=== PATIENT | male | born 1950 | race Caucasian/White ===

== ENCOUNTER 2020-02-27 06:09 | Outpatient (REF) | payer MEDICARE, MEDICAID, SELFPAY ==
[2020-02-27 07:14] LABS: Creatinine Urine 191.65 mg/dL; Microalbum/Creatinine Ratio Ur 5.2 ug/mg cr
[2020-02-27 07:16] LABS: Alanine Aminotransferase 23 U/L (0-40); Alkaline Phosphatase 71 U/L (39-117); Anion Gap 12 (12-20); Aspartate Amino Transferase 21 U/L (5-37); Bilirubin Total 0.6 mg/dL (0.0-1.0); Blood Urea Nitrogen 21 mg/dL (9-16); Calcium 8.2 mg/dL (8.4-10.2); Carbon Dioxide 29 mmol/L (22-29); Chloride 104 mmol/L (96-108); Cholesterol 168 mg/dL; Estimated Glomerular Filt Rate > 60; Glucose Fasting 123 mg/dL (60-99); HDL Cholesterol 46 mg/dL; LDL Cholesterol Calculated 96 mg/dl; Potassium 4.5 mmol/l (3.3-5.1); Sodium 140 mmol/L (135-145); Total Protein 6.5 g/dL (6.5-8.0); Triglycerides 134 mg/dL
[2020-02-27 07:19] LABS: Estimated Average Glucose 140 mg/dL; Hemoglobin A1c % 6.5 %
[2020-02-27 07:35] LABS: TSH reflex Free T4 1.38 mIU/mL (0.32-4.0)
== END 2020-02-27 06:10 | disposition home or self-care (01) ==
LOC: HO.LAB 06:09
PROVIDERS: Visit Provider Family Medicine
DX: E11.9 Type 2 diabetes mellitus without complications (principal); I10 Essential (primary) hypertension; Z00.00 Encounter for general adult medical examination without abnormal findings
CPT/HCPCS: 80053; 80061; 82043; 83036; 84443

== ENCOUNTER 2021-09-07 10:11 | Outpatient (REF) | payer MEDICARE, MEDICAID, SELFPAY ==
--- NOTE | ~2021-09-07 | XR_ITS ---
EXAMINATION: XR CHEST CLINICAL INFORMATION: Wheezing COMPARISON: None TECHNIQUE: 2 views of the chest were obtained. FINDINGS: Normal symmetric lung volumes. No parenchymal consolidation. No pleural effusion. No pneumothorax. Cardiomediastinal silhouette and pulmonary vascularity are within normal limits. Aorta is atherosclerotic. No acute osseous abnormalities. XR/XR chest 2V IMPRESSION: No acute findings
== END 2021-09-07 10:12 | disposition home or self-care (01) ==
LOC: HO.XRAY 10:11
PROVIDERS: PCP Family Medicine; Visit Provider Family Medicine
DX: R06.2 Wheezing (principal)
CPT/HCPCS: 71046

== ENCOUNTER 2021-09-08 05:58 | Outpatient (REF) | payer MEDICARE, MEDICAID, SELFPAY ==
[2021-09-08 08:09] LABS: Appearance Urine CLEAR; Color Urine YELLOW; Glucose Urine UA NEG (NEG); Leukocyte Esterase Urine NEG (NEG); Nitrite Urine NEG (NEG); PH 6.5 (5.0-8.0); Urine Blood NEG (NEG); Urine Ketones NEG (NEG); Urine Protein NEG (NEG-TRACE)
[2021-09-08 08:21] LABS: Alanine Aminotransferase 21 U/L (0-40); Albumin Level 4.2 g/dL (3.5-5.0); Alkaline Phosphatase 62 U/L (39-117); Anion Gap 15 (12-20); Aspartate Amino Transferase 19 U/L (5-37); Bilirubin Total 0.5 mg/dL (0.0-1.0); Blood Urea Nitrogen 20 mg/dL (9-16); Calcium 9.4 mg/dL (8.4-10.2); Carbon Dioxide 28 mmol/L (22-29); Chloride 100 mmol/L (96-108); Cholesterol 160 mg/dL; Estimated Glomerular Filt Rate > 60; Glucose Fasting 112 mg/dL (60-99); HDL Cholesterol 48 mg/dL; LDL Cholesterol Calculated 92 mg/dl; Potassium 4.3 mmol/L (3.3-5.1); Sodium 139 mmol/L (135-145); Total Protein 6.9 g/dL (6.5-8.0); Triglycerides 102 mg/dL
[2021-09-08 08:22] LABS: Creatinine Urine 54.46 mg/dL; Microalbumin Urine < 5.0 mg/L
[2021-09-08 08:51] LABS: Prostate Specific Antigen Scr 2.07 ng/mL (<0.05-4.0); TSH reflex Free T4 1.42 uIU/mL (0.32-4.0)
== END 2021-09-08 05:59 | disposition home or self-care (01) ==
LOC: HO.LAB 05:58
PROVIDERS: PCP Family Medicine; Visit Provider Family Medicine
DX: Z00.00 Encounter for general adult medical examination without abnormal findings (principal); I10 Essential (primary) hypertension; Z12.5 Encounter for screening for malignant neoplasm of prostate
CPT/HCPCS: 36415; 80053; 80061; 81003; 82043; 84153; 84443

== ENCOUNTER 2022-01-02 16:52 | Emergency (ER) | payer MEDICARE, MEDICAID, SELFPAY ==
--- NOTE | ~2022-01-02 | CT_ITS ---
EXAMINATION: CT head/brain wo IV con CLINICAL INFORMATION: Reason for Exam acute dizziness COMPARISON: None. TECHNIQUE: Contiguous axial imaging was performed from the skull base to vertex without intravenous contrast. Sagittal and coronal reformatted images were obtained. This CT examination was performed using dose optimization techniques as appropriate, variously including the following: * Automated exposure control * Adjustment of mA and/or kV according to patient size (this includes techniques or standardized protocols for targeted exams where dose is matched to indication/reason for exam; i.e. extremities or head) Use of iterative reconstruction technique DLP: 684 mGy-cm FINDINGS: No acute osseous or soft tissue abnormality. The mastoid air cells and visualized portions of the paranasal sinuses are well aerated. There is no evidence of acute intracranial hemorrhage or territorial infarction. No abnormal mass effect or midline shift is seen. Gee to white matter differentiation is well preserved. No extra-axial fluid collections are identified. No hydrocephalus. Proportional prominence of the ventricles and sulcal spaces is consistent with mild volume loss. There is no abnormal attenuation within the brain parenchyma. CT/CT head/brain wo IV con IMPRESSION: No acute intracranial abnormality including hemorrhage, mass effect, hydrocephalus, or acute territorial edematous infarction.
[2022-01-02 17:01] VITALS: BP 137/76; PULSE 91; RESP 18; TEMP 36.7; O2SAT 96; BMI 32.8
[2022-01-02 17:16] LABS: MANUAL DIFF FLAG NO
[2022-01-02 17:21] LABS: Basophils Absolute Auto 0.1 X10*3/uL (0.0-0.2); Basophils Percent Auto 0.5 % (0-2); Eosinophils Absolute Auto 0.1 X10*3/uL (0.0-0.4); Eosinophils Percent Auto 0.7 % (0-4); Hemoglobin 14.5 g/dl (14.0-18.0); Imm Gran Abs Auto 0.07 X10*3/uL (0.00-0.03); Imm Gran Pct Auto 0.7 % (0.0-0.4); Lymphocytes Percent Auto 9.1 % (20-40); Mean Corpuscular HGB Conc 33.7 g/dl (31.0-36.0); Mean Corpuscular Hemoglobin 29.2 pg (27.0-33.0); Mean Corpuscular Volume 86.5 fL (80.0-98.0); Mean Platelet Volume 9.1 fL (9.4-12.4); Monocytes Absolute Auto 0.5 X10*3/uL (0.1-1.2); Monocytes Percent Auto 4.5 % (2-11); Neutrophils Percent Auto 84.5 % (45-73); Platelet Count 181 X10*3/uL (160-400); Red Blood Count 4.97 X10*6/uL (4.60-5.80); Red Cell Distribution Width 13.8 % (11.0-16.0); White Blood Count 10.7 X10*3/uL (4.8-10.8)
[2022-01-02 17:25] VITALS: BP 147/74; PULSE 81; RESP 22; TEMP 36.6; O2SAT 96
[2022-01-02 17:26] LABS: Prothrombin Time 11.1 SEC (10.0-13.1)
[2022-01-02 17:36] LABS: Alanine Aminotransferase 22 U/L (0-40); Albumin Level 4.2 g/dL (3.5-5.0); Alkaline Phosphatase 61 U/L (39-117); Anion Gap 19 (12-20); Aspartate Amino Transferase 21 U/L (5-37); Bilirubin Total 0.3 mg/dL (0.0-1.0); Blood Urea Nitrogen 28 mg/dL (9-16); Carbon Dioxide 25 mmol/L (22-29); Chloride 100 mmol/L (96-108); Creatinine Clr Calc Pharmacy 70.3; Estimated Glomerular Filt Rate > 60; Glucose Random 135 mg/dL (60-115); Sodium 139 mmol/L (135-145)
--- NOTE | 2022-01-02 17:47 | ED.DIZZY ---
HPI - Dizziness General Chief Complaint: Dizziness Stated Complaint: Dizzy Time Seen by Provider: 01/02/22 17:47 Source: patient Mode of arrival: ambulatory Limitations: no limitations History of Present Illness HPI Narrative: Patient history of hypertension diabetes noticed sudden onset of dizziness with slight spinning movement started just prior to arrival with slight right-sided headache nausea and vomited 1 time was little off balance patient never had similar episode of dizziness in the past no fever no chills no chest pain or palpitation no focal weakness no speech problem. Patient feeling much better after arrival Related Data Home Medications Medication Instructions Recorded Confirmed aspirin 81 mg tablet,delayed 81 mg PO DAILY 04/06/20 release (Adult Low Dose Aspirin) Previous Rx's Medication Instructions Recorded simvastatin 20 mg tablet 20 mg PO BEDTIME #90 tabs 06/30/21 blood sugar diagnostic (FreeStyle #200 ea 08/17/21 Lite Strips) metformin 500 mg tablet 500 mg PO BID 90 days #180 caps 08/22/21 lisinopril 20 1 tab PO DAILY #90 tabs 10/26/21 mg-hydrochlorothiazide 25 mg tablet amlodipine 5 mg tablet 10 mg PO DAILY #60 tabs 11/24/21 glipizide 10 mg tablet, extended 10 mg PO DAILY 90 days #90 tabs 12/06/21 release 24 hr meclizine 25 mg tablet 25 mg PO TID PRN dizziness #20 tabs 01/02/22 Allergies Allergy/AdvReac Type Severity Reaction Status Date / Time No Known Allergies Allergy Verified 12/06/21 08:28 Review of Systems Review of Systems: Yes all other systems are reviewed and are negative [facility] Past Medical History Surgical History No pertinent past surgical history Social History Social History Household Members: Family Household Members Other:: sister Housing: House Alcohol intake: never Patient Tobacco Use Status: Never used Tobacco e-Cigarette/Vaping Use: Never Used Second Hand Smoke Exposure: No Advance Directives: No Advance Directives Information Provided: No service: No Current occupational status: retired Current occupational exposures/hazards: No Cognitive needs: No Hearing needs: No Vision needs: No Physical Exam Vital Signs: Vital Signs: Last Vital Signs Temp 97.9 F 01/02/22 17:25 Pulse 87 01/02/22 19:50 Resp 17 01/02/22 19:50 BP 128/63 01/02/22 19:50 Pulse Ox 96 01/02/22 19:50 O2 Del Method 01/02/22 19:50 BMI result Body Mass Index 32.8 Appearance: Alert. Oriented X3. No acute distress. Eyes: PERRLA, No Nystagmus ENT: Pharynx normal. Oral Mucosa moist Neck: Normal inspection. Neck supple. CVS: Normal heart rate and rhythm. Pulses normal. Respiratory: No respiratory distress. Equal air entry bilateral, no wheezing/rales/rhonchi Abdomen: Soft and nontender. Bowel sounds are present, no mass palpable, no CVA tenderness Skin: Skin warm and dry. Normal skin color. Normal skin turgor. Extremities: No lower extremity edema. No calf tenderness Neuro: Oriented X 3. No motor deficit. No sensory deficit.No cerebellar signs , cranial nerves II-XII intact MDM - Dizziness MDM Narrative Medical decision making narrative: Patient feeling much better after meclizine able to ambulate in the ER, CT scan head of the negative labs are stable discharge patient home on meclizine Lab Data Attestation: I reviewed the patient's lab results. Result diagrams: 01/02/22 17:07 01/02/22 17:07 Labs: Lab Results 01/02/22 01/02/22 01/02/22 Range/Units 17:07 17:07 17:07 WBC 10.7 (4.8-10.8) X10*3/uL RBC 4.97 (4.60-5.80) X10*6/uL Hgb 14.5 (14.0-18.0) g/dl Hct 43.0 (42.0-52.0) % MCV 86.5 (80.0-98.0) fL MCH 29.2 (27.0-33.0) pg MCHC 33.7 (31.0-36.0) g/dl RDW 13.8 (11.0-16.0) % Plt Count 181 (160-400) X10*3/uL MPV 9.1 L (9.4-12.4) fL Immature Gran % (Auto) 0.7 H (0.0-0.4) % Neut % (Auto) 84.5 H (45-73) % Lymph % (Auto) 9.1 L (20-40) % Chambers % (Auto) 4.5 (2-11) % Eos % (Auto) 0.7 (0-4) % Baso % (Auto) 0.5 (0-2) % Lymph # (Auto) 1.0 L (1.2-4.9) X10*3/uL Chambers # (Auto) 0.5 (0.1-1.2) X10*3/uL Eos # (Auto) 0.1 (0.0-0.4) X10*3/uL Baso # (Auto) 0.1 (0.0-0.2) X10*3/uL Abs Immat Gran (auto) 0.07 H (0.00-0.03) X10*3/uL Absolute Neuts (auto) 9.0 H (2.0-8.3) x10*3/uL Absolute Nucleated RBC 0.000 (0.0-0.012) X10*3/uL Nucleated RBC % (auto) 0.0 (0.0-0.2) /100WBC PT 11.1 (10.0-13.1) SEC INR 1.0 (0.9-1.1) Sodium 139 (135-145) mmol/L Potassium 5.0 (3.3-5.1) mmol/L Chloride 100 (96-108) mmol/L Carbon Dioxide 25 (22-29) mmol/L Anion Gap 19 (12-20) BUN 28 H (9-16) mg/dL Creatinine 0.99 (0.5-1.4) mg/dL Estim Creat Clear Calc 70.3 Estimated GFR > 60 Random Glucose 135 H (60-115) mg/dL Calcium 9.0 (8.4-10.2) mg/dL Total Bilirubin 0.3 (0.0-1.0) mg/dL AST 21 (5-37) U/L ALT 22 (0-40) U/L Alkaline Phosphatase 61 (39-117) U/L Total Protein 7.0 (6.5-8.0) g/dL Albumin 4.2 (3.5-5.0) g/dL Discharge Plan Discharge Clinical Impression: Benign paroxysmal positional vertigo Patient Disposition: Home, Self-Care Instructions: Benign Paroxysmal Positional Vertigo (ED) Additional Instructions: Care and caution as advised Take meclizine 1 tablet every 8 hours as needed for dizziness Follow with PCP if not better Prescriptions: New meclizine 25 mg tablet 25 mg PO TID PRN (Reason: dizziness) Qty: 20 0RF No Action simvastatin 20 mg tablet 20 mg PO BEDTIME Qty: 90 3RF (DME) FreeStyle Lite Strips Strip See Rx Instructions .ROUTE .MEDSUPPLY Qty: 200 4RF Rx Instructions: DX: E11.9, test blood sugar twice a day, 90 days metformin 500 mg tablet 500 mg PO BID 90 Days Qty: 180 3RF lisinopril-hydrochlorothiazide 20-25 mg tablet 1 tab PO DAILY Qty: 90 1RF amlodipine 5 mg tablet 10 mg PO DAILY Qty: 60 1RF aspirin [Adult Low Dose Aspirin] 81 mg tablet,delayed release (DR/EC) 81 mg PO DAILY glipizide 10 mg tablet extended release 24hr 10 mg PO DAILY 90 Days Qty: 90 3RF Interventions: ED Discharge Assessment Last Done: 01/02/22 19:54 Discharge Date/Time: 01/02/22 19:55
[2022-01-02 18:02] VITALS: BP 143/84; BP 145/78; PULSE 84; PULSE 91
[2022-01-02 18:03] VITALS: BP 159/79; PULSE 99
[2022-01-02 18:04] VITALS: BP 145/78; PULSE 84; RESP 18; O2SAT 96
[2022-01-02] MEDS: Meclizine HCl 25 MG TABLET 50 MG PO (18:26)
[2022-01-02 19:50] VITALS: BP 128/63; PULSE 87; RESP 17; O2SAT 96
== END 2022-01-02 19:55 | disposition home or self-care (01) ==
PROVIDERS: Emergency Provider Internal Medicine; PCP Family Medicine
DX: H81.10 Benign paroxysmal vertigo, unspecified ear (principal); I10 Essential (primary) hypertension; E11.9 Type 2 diabetes mellitus without complications; E78.00 Pure hypercholesterolemia, unspecified; Z79.82 Long term (current) use of aspirin; Z79.02 Long term (current) use of antithrombotics/antiplatelets; Z79.84 Long term (current) use of oral hypoglycemic drugs; Z79.899 Other long term (current) drug therapy
CPT/HCPCS: 36415; 70450; 80053; 85025; 85610; 99283; 99284

== ENCOUNTER 2022-07-18 08:12 | Outpatient (REF) | payer MEDICARE, MEDICAID, SELFPAY ==
[2022-07-18 11:40] LABS: MANUAL DIFF FLAG NO
[2022-07-18 11:50] LABS: Basophils Absolute Auto 0.1 X10*3/uL (0.0-0.2); Basophils Percent Auto 0.8 % (0-2); Eosinophils Absolute Auto 0.2 X10*3/uL (0.0-0.4); Eosinophils Percent Auto 2.7 % (0-4); Hematocrit 44.7 % (42.0-52.0); Hemoglobin 14.6 g/dl (14.0-18.0); Imm Gran Abs Auto 0.03 X10*3/uL (0.00-0.03); Imm Gran Pct Auto 0.5 % (0.0-0.4); Lymphocytes Absolute Auto 1.5 X10*3/uL (1.2-4.9); Lymphocytes Percent Auto 25.7 % (20-40); Mean Corpuscular HGB Conc 32.7 g/dl (31.0-36.0); Mean Corpuscular Hemoglobin 28.1 pg (27.0-33.0); Mean Corpuscular Volume 86.1 fL (80.0-98.0); Mean Platelet Volume 9.8 fL (9.4-12.4); Monocytes Absolute Auto 0.5 X10*3/uL (0.1-1.2); Neutrophils Absolute Auto 3.7 x10*3/uL (2.0-8.3); Neutrophils Percent Auto 61.3 % (45-73); Platelet Count 202 X10*3/uL (160-400); Red Blood Count 5.19 X10*6/uL (4.60-5.80); Red Cell Distribution Width 14.8 % (11.0-16.0)
[2022-07-18 11:56] LABS: Appearance Urine Clear; Color Urine Yellow; Glucose Urine UA Negative (Negative); Leukocyte Esterase Urine Negative (Negative); Nitrite Urine Negative (Negative); Urine Blood Negative (Negative); Urine Ketones Negative (Negative); Urine Protein Negative (Neg-Trace)
[2022-07-18 11:58] LABS: Estimated Average Glucose 143 mg/dL; Hemoglobin A1c % 6.6 %
[2022-07-18 12:39] LABS: Creatinine Urine 124.33 mg/dL; Microalbum/Creatinine Ratio Ur 6.4 ug/mg cr
[2022-07-18 13:20] LABS: Alanine Aminotransferase 23 U/L (0-40); Albumin Level 4.1 g/dL (3.5-5.0); Alkaline Phosphatase 57 U/L (39-117); Anion Gap 16 (12-20); Aspartate Amino Transferase 19 U/L (5-37); Bilirubin Total 0.6 mg/dL (0.0-1.0); Blood Urea Nitrogen 23 mg/dL (9-16); Calcium 9.1 mg/dL (8.4-10.2); Carbon Dioxide 26 mmol/L (22-29); Chloride 104 mmol/L (96-108); Cholesterol 166 mg/dL; Estimated Glomerular Filt Rate > 60; Glucose Fasting 107 mg/dL (60-99); HDL Cholesterol 45 mg/dL; LDL Cholesterol Calculated 93 mg/dl; Potassium 4.1 mmol/L (3.3-5.1); Sodium 142 mmol/L (135-145); Total Protein 6.6 g/dL (6.5-8.0); Triglycerides 142 mg/dL
[2022-07-18 13:33] LABS: Prostate Specific Antigen Scr 2.02 ng/mL (<0.05-4.0); TSH reflex Free T4 1.18 uIU/mL (0.32-4.0)
== END 2022-07-18 08:13 | disposition home or self-care (01) ==
LOC: HO.WFDLDS 08:12
PROVIDERS: Visit Provider Family Medicine
DX: Z00.00 Encounter for general adult medical examination without abnormal findings (principal); I10 Essential (primary) hypertension; R73.01 Impaired fasting glucose; Z12.5 Encounter for screening for malignant neoplasm of prostate
CPT/HCPCS: 36415; 80053; 80061; 81003; 82043; 83036; 84153; 84443; 85025

== ENCOUNTER 2023-01-24 08:33 | Outpatient (AMB) | payer MEDICARE, MEDICAID, SELFPAY ==
--- NOTE | 2023-01-24 08:40 | MHC.PC.OV ---
Vital Signs 01/24/23 08:41 Height 5 ft 4 in Weight 202 lb 2 oz BMI 34.7 BP 110/60 Blood Pressure Location Lt brachial Position Sitting Respiration 14 Pulse 97 Pulse Source Pulse Oximeter Temp 98.9 F Temp Source Oral Pulse Oximetry (%) 98 Oxygen Delivery Method Room Air Intake Visit Reasons: f/u hypertension and diabetes Intake Note: Patient is here to follow up regarding diabetes and hypertension. Patient reports he has not had an A1C completed in another office within the last 3 months. Patient reports he has no concerns today. Edi Analyst Required: No Accompanied by: Self / Same As Patient Allergies No Known Allergies Allergy (Verified 01/24/23 08:51) Tobacco use date assessed: 01/24/23 Fall risk assessment: No Falls in past year Last assessed Fall Risk: 01/24/23 Dental Screening Dental Screen Date: 01/24/23 Did you have a dental visit in the last 12 months?: No Did you have a dental problem in the last 6 months where you did not have access to dental care?: No Was dental information given to patient?: Patient declined HPI f/u hypertension and diabetes HPI Details 72 y/o male presents to f/u hypertension and diabetes. Blood pressure today 110/60. He is on lisinopril-HCTZ 20-25 mg daily and amlodipine 10mg. Last A1c 10/25/22 6.8%. A1c today 01/24/23 6.9%. He is on glipizide 10mg and metformin 500mg b.i.d. HPI Comments History of Present Illness Details Documentation assistance for Mauro Matamoros MD, was provided by Jose Livingston,?[employer] on 01/22/2023 9:09 AM EST. Gordon, Dr. Matamoros, have read, observed, and verified documentation.? [facility] Surgical History No pertinent past surgical history Social History Household Members: Family Household Members Other:: sister Housing: House Alcohol intake: never Patient Tobacco Use Status: Never used Tobacco e-Cigarette/Vaping Use: Never Used Second Hand Smoke Exposure: No service: No Current occupational status: retired Current occupational exposures/hazards: No Cognitive needs: No Hearing needs: No Vision needs: No Questionnaire Thrive Questionnaire Date Thrive assessed: 06/07/22 SAMANTHA-7 AMB Questionnaire SAMANTHA-7 Date SAMANTHA - 7 assessed: 09/30/21 Source: Developed by Drs. Rashad Dominique, Dorota Padilla, Fabian Dunham and colleagues, with an educational joslyn from [employer]. Physical exam (Primary Care) Vital Signs: Last Vital Signs Temp 98.9 F 01/24/23 08:41 Pulse 97 01/24/23 08:41 Resp 14 01/24/23 08:41 BP 110/60 01/24/23 08:41 Pulse Ox 98 01/24/23 08:41 Oxygen Delivery Method Room Air 01/24/23 08:41 BMI result Body Mass Index 34.7 Tobacco/Smoking Status: Tobacco use Status Tobacco use date assessed 01/24/23 01/24/23 08:51 Patient Tobacco Use Status Never used Tobacco 01/24/23 08:40 e-Cigarette/Vaping Use Never Used 01/24/23 08:40 Thrive Assessment: Date of Thrive Assessment Date Thrive assessed 06/07/22 01/24/23 08:40 Results AMB Hemoglobin A1c AMB Hemoglobin A1c 6.9 % Last Edit by Leena Stanford on 01/24/23 08:56 Results Reviewed Results Reviewed: Laboratory Last Values Hgb A1c (Clinic) 6.9 % (4.0-6.0) H 01/24/23 08:56 Assessment and Plan Assessment & Plan (1) Essential hypertension: Code(s): I10 - Essential (primary) hypertension Plan: Blood pressure is well controlled. Goal is less than 140/90 Continue current medication regimen (2) Diabetes type 2, controlled: Code(s): E11.9 - Type 2 diabetes mellitus without complications Plan: A1c today 6.9% which is still controlled. Goal is less than 7.0% No medication changes made today. Continue current regimen Encouraged diet lower in sugars and starches Encouraged exercise Patient was refer to ophthalmology last fall and also this past May. Has not been scheduled yet. I have asked the front office to help him get schedule today. (3) Immunization counseling: Code(s): Z71.85 - Encounter for immunization safety counseling Plan: Due for influenza vaccine and we will give this to him today Coding Level of Care Code Est Pt Level 4 (38313) Diagnoses Essential hypertension I10 Diabetes type 2, controlled E11.9 Immunization counseling Z71.85
[2023-01-24 08:41] VITALS: BP 110/60; PULSE 97; RESP 14; TEMP 37.2; O2SAT 98; BMI 34.7
== END 2023-01-24 09:35 | disposition home or self-care (01) ==
PROVIDERS: PCP Family Medicine; Visit Provider Family Medicine
DX: Z23 Encounter for immunization (principal)
CPT/HCPCS: 90471; 90686; 99214

== ENCOUNTER 2023-03-19 15:30 | Outpatient (AMB) | payer MEDICARE, MEDICAID, SELFPAY ==
[2023-03-19 16:00] VITALS: BP 120/60; PULSE 113; TEMP 36.3; O2SAT 97; BMI 35.0
--- NOTE | 2023-03-19 16:00 | AM.OFFWIN_ITS ---
Intake Vital Signs 03/19/23 16:00 Height 5 ft 4 in Weight 204 lb BMI 35.0 BP 120/60 Blood Pressure Location Rt brachial Position Sitting Pulse 113 H Pulse Source Pulse Oximeter Temp 97.4 F Temp Source Oral Pulse Oximetry (%) 97 Oxygen Delivery Method Room Air Intake Visit Reasons: EP Fell last week/ Intake Note: Patient is here today from a fall last wk, pt tripped over his trailer and is having pain in his lower back Patient Tobacco Use Status: Never used Tobacco Allergies No Known Allergies Allergy (Verified 03/19/23 16:00) Medication List - Last Reconciled 03/19/23 by Marcelo Frazier MD amlodipine 10 mg (2 x 5 mg) PO DAILY 90 days aspirin (Adult Low Dose Aspirin) 81 mg PO DAILY blood sugar diagnostic (FreeStyle Lite Strips) DX: E11.9, test blood sugar twice a day, 90 days glipizide ER 10 mg PO DAILY 90 days lisinopril-hydrochlorothiazide 20-25 mg 1 tab PO DAILY metformin 500 mg PO BID 90 days simvastatin 20 mg PO BEDTIME Do you need a note to return to daycare/school/sports/work: No HPI EP Fell last week/ HPI Details 72-year-old male presents to the office for a sick visit. Patient is a former and he fell more than 5 ft and landed on hard metal. Today he started having worsening back pain. The pain is worse on taking a deep breath. No fevers or chills. PFSH Surgical History No pertinent past surgical history Social History Household Members: Family Household Members Other:: sister Housing: House Alcohol intake: never Patient Tobacco Use Status: Never used Tobacco e-Cigarette/Vaping Use: Never Used Second Hand Smoke Exposure: No service: No Current occupational status: retired Current occupational exposures/hazards: No Cognitive needs: No Hearing needs: No Vision needs: No Physical Exam Vital Signs: Last Vital Signs Temp 97.4 F 03/19/23 16:00 Pulse 113 H 03/19/23 16:00 BP 120/60 03/19/23 16:00 Pulse Ox 97 03/19/23 16:00 Oxygen Delivery Method Room Air 11/20/23 16:00 BMI result Body Mass Index 35.0 Const General: cooperative and healthy appearing Nutritional Appearance: well nourished Orientation/consciousness: patient oriented x3 Limitations: no limitations HEENT Head: Yes normal to inspection Eyes General: appearance normal, both eyes and all related structures Neck Neck: Yes normal visual inspection Chest Chest palpation & inspection: normal palpation of entire chest wall Resp Effort & Inspection: normal respiratory effort Back/Spine/Pelvis Other: Bruising beneath the left coastal margin and extending behind. Neuro General: patient oriented x3 Assessment & Plan Assessment & Plan (1) Bruise: Code(s): T14.8XXA - Other injury of unspecified body region, initial encounter Plan I patient was advised to proceed to the emergency room I called his sister into the room to explain. Retroperitoneal bleeds have to be ruled out. Patient will go with his sister right now. Coding Level of Care Code Est Pt Level 4 (33638) Diagnoses Bruise T14.8XXA
== END 2023-03-19 16:32 | disposition home or self-care (01) ==
PROVIDERS: PCP Family Medicine; Visit Provider Internal Medicine
DX: T14.8XXA Other injury of unspecified body region, initial encounter (principal)
CPT/HCPCS: 99214

== ENCOUNTER 2023-03-19 16:40 | Emergency (ER) | payer MEDICARE, MEDICAID, SELFPAY ==
--- NOTE | ~2023-03-19 | CT_ITS ---
CT HEAD WITHOUT IV CONTRAST CT CERVICAL SPINE WITHOUT IV CONTRAST INDICATION: Fall, injury COMPARISON: Fall/injury. TECHNIQUE: Multidetector CT acquisitions of the head and cervical spine were obtained without IV contrast. Multiplanar reformats were acquired and utilized for image interpretation. This CT examination was performed using dose optimization techniques as appropriate, variously including the following: *Automated exposure control *Adjustment of mA and/or kV according to patient size (this includes techniques or standardized protocols for targeted exams where dose is matched to indication/reason for exam; i.e. extremities or head) *Use of iterative reconstruction technique FINDINGS: HEAD: There is no intracranial hemorrhage, hydrocephalus, extra-axial surface collection, midline shift, or other herniation pattern. Gee to white matter differentiation is diffusely maintained without evidence of an evolved acute territorial infarct. The basilar cisterns are preserved. No significant soft tissue abnormality. No acute osseous abnormality. There are retention cysts within the maxillary sinuses bilaterally. Mastoid air cells are clear. Cerumen within the external auditory canals bilaterally. CERVICAL SPINE: There is anatomic alignment of the vertebral bodies and posterior elements. There is multilevel cervical spondylosis. There is no acute fracture and there is no acute subluxation. The craniocervical and atlantoaxial articulations are normal. There is no prevertebral soft tissue swelling. Atherosclerotic calcification involving the carotid rotations bilaterally. The visualized lung apices are clear. CT/CT cervical spine wo IV con IMPRESSION: - No acute intracranial abnormality. - No acute osseous abnormality within the cervical spine. There is multilevel cervical spondylosis.
--- NOTE | ~2023-03-19 | CT_ITS ---
EXAMINATION: CT CHEST WITHOUT CONTRAST CLINICAL INFORMATION: Fall, injury. COMPARISON: Chest x-ray 09/07/2021 TECHNIQUE: Multidetector volumetric CT imaging of the chest was done. Axial MIP volume rendering provided. Sagittal and coronal reformatted images were obtained. This CT examination was performed using dose optimization techniques as appropriate, variously including the following: *Automated exposure control *Adjustment of mA and/or kV according to patient size (this includes techniques or standardized protocols for targeted exams where dose is matched to indication/reason for exam; i.e. extremities or head) *Use of iterative reconstruction technique DLP: 354 mGy-cm FINDINGS: RN INTERVENTIONAL: Lungs are expanded with mild cardiomegaly. LUNGS: The lungs are clear without acute pneumonic consolidation. There is a 1 mm nodule along the left superior major fissure in the upper lobe axial image 126/15. No additional pulmonary nodules seen. There is no mass or groundglass density. MEDIASTINUM: The thyroid lobes are symmetrical and normal. There is a small hypodense nodule left lobe on axial image 7/12. Central trachea and the bronchi widely patent. Heart size and the great vessels are normal caliber. No pericardial effusion seen. No abnormal size mediastinal or hilar lymph nodes seen. CORONARY ARTERY CALCIFICATION: Mild coronary artery calcifications are present. PLEURA: There is no pleural effusion. No pleural mass or thickening. AXILLA: There are small bilateral inguinal lymph nodes largest left axillary lymph node measures 1.2 cm. UPPER ABDOMEN: Visualized liver, spleen, pancreas, gallbladder and bilateral adrenal glands unremarkable. Suspected tiny sliding hiatal hernia the stomach is unremarkable. OSSEOUS STRUCTURES: No aggressive lytic or sclerotic process seen. Mild ventral spondylosis lower dorsal spine is noted. There is a nondisplaced fracture left posterior 11th rib. There is a small hemangioma T9 vertebra. CT/CT chest wo IV con IMPRESSION: Nondisplaced fracture left posterior 11th rib. No additional fracture seen involving bony thorax. Suspect small hypodense left thyroid nodule No evidence of pneumothorax or pleural effusion. Fleischner guidelines were followed.
--- NOTE | ~2023-03-19 | CT_ITS ---
CT HEAD WITHOUT IV CONTRAST CT CERVICAL SPINE WITHOUT IV CONTRAST INDICATION: Fall, injury COMPARISON: Fall/injury. TECHNIQUE: Multidetector CT acquisitions of the head and cervical spine were obtained without IV contrast. Multiplanar reformats were acquired and utilized for image interpretation. This CT examination was performed using dose optimization techniques as appropriate, variously including the following: *Automated exposure control *Adjustment of mA and/or kV according to patient size (this includes techniques or standardized protocols for targeted exams where dose is matched to indication/reason for exam; i.e. extremities or head) *Use of iterative reconstruction technique FINDINGS: HEAD: There is no intracranial hemorrhage, hydrocephalus, extra-axial surface collection, midline shift, or other herniation pattern. Gee to white matter differentiation is diffusely maintained without evidence of an evolved acute territorial infarct. The basilar cisterns are preserved. No significant soft tissue abnormality. No acute osseous abnormality. There are retention cysts within the maxillary sinuses bilaterally. Mastoid air cells are clear. Cerumen within the external auditory canals bilaterally. CERVICAL SPINE: There is anatomic alignment of the vertebral bodies and posterior elements. There is multilevel cervical spondylosis. There is no acute fracture and there is no acute subluxation. The craniocervical and atlantoaxial articulations are normal. There is no prevertebral soft tissue swelling. Atherosclerotic calcification involving the carotid rotations bilaterally. The visualized lung apices are clear. CT/CT head/brain wo IV con IMPRESSION: - No acute intracranial abnormality. - No acute osseous abnormality within the cervical spine. There is multilevel cervical spondylosis.
[2023-03-19 17:27] VITALS: BP 154/85; PULSE 107; RESP 18; TEMP 36.6; O2SAT 97; BMI 33.9
--- NOTE | 2023-03-19 17:29 | ED_ITS ---
HPI - General Adult General Chief complaint: Fall Stated complaint: left lower back pain fell Time Seen by Provider: 03/19/23 19:45 Source: patient Mode of arrival: ambulatory Limitations: no limitations History of Present Illness HPI narrative: Patient is a 72 year old assigned male at with a history of presenting to the emergency department today with HTN and DM. Patient states that 1 week ago he fell and has been having left sided flank pain ever since. Patient denies any head strike, loss of consciousness, anti-coagulant medication use, dizziness, lightheadedness, abdominal pain, nausea, vomiting, fever, chills, blurry vision, double vision, loss of vision, chest pain, difficulty breathing, shortness of breath, back pain, night sweats, pain with urination, increased urinary frequency, increased urinary urgency, blood in his urine or stool, syncope or a near syncopal episode, bowel incontinence, bladder incontinence, bowel retention, bladder retention, or any other complaints at this time. Onset (ago): week(s) (1) Location: left (flank) Severity: mild Severity scale (1-10): 3 Quality: aching and dull Pain Consistency: constant Relieving factors: none Exacerbating factors: none Associated symptoms: denies other symptoms Treatments prior to arrival: none Related Data Home Medications Medication Instructions Recorded Confirmed aspirin 81 mg tablet,delayed 81 mg PO DAILY 04/06/20 10/25/22 release (Adult Low Dose Aspirin) Previous Rx's Medication Instructions Recorded glipizide 10 mg tablet, extended 10 mg PO DAILY 90 days #90 tabs 05/15/22 release 24 hr metformin 500 mg tablet 500 mg PO BID 90 days #180 caps 08/14/22 amlodipine 5 mg tablet 10 mg (2 x 5 mg) PO DAILY 90 days 08/18/22 #180 tabs blood sugar diagnostic (FreeStyle #200 ea 09/22/22 Lite Strips) lisinopril 20 1 tab PO DAILY #90 tabs 10/31/22 mg-hydrochlorothiazide 25 mg tablet simvastatin 20 mg tablet 20 mg PO BEDTIME #90 tabs 01/09/23 Allergies Allergy/AdvReac Type Severity Reaction Status Date / Time No Known Allergies Allergy Verified 03/19/23 16:00 Review of Systems Constitutional: Constitutional: Reports no additional constitutional complaints, Denies chills, Denies fever(s) and Denies night sweats Eyes: Eyes: Reports no additional eye complaints, Denies blurry vision, Denies change in vision, Denies diplopia, Denies eye discharge, Denies loss of vision and Denies eye pain ENT: Denies dizziness Cardiovascular: Cardiovascular: Reports no additional cardiovascular complaints, Denies chest pain, Denies lightheadedness, Denies Loss of Consciousness and Denies dyspnea Respiratory: Respiratory: Reports no additional respiratory complaints and Denies dyspnea Gastrointestinal: Gastrointestinal: Reports no additional gastrointestinal complaints, Denies abdominal pain, Denies melena, Denies hematochezia, Denies change in bowel habits and Denies change in stool character Genitourinary: Genitourinary: Reports no additional male genitourinary complaints, Denies hematuria, Denies oliguria, Denies difficulty urinating, Denies dysuria, Denies urinary frequency, Denies urinary hesitancy, Denies urinary incontinence and Denies urinary urgency Musculoskeletal: Musculoskeletal: Reports no additional musculoskeletal complaints, Denies numbness and Denies tingling Comments: left flank pain Neurologic: Denies dizziness, Denies loss of vision, Denies numbness and Denies tingling Psychiatric: Psychiatric: Reports no additional psychiatric complaints Endocrine: Endocrine: Reports no additional endocrine complaints Hematologic/Lymphatic: Hematologic/Lymphatic: Reports no additional hematologic/lymphatic complaints Allergic/Immunologic: Allergic/Immunologic: Reports no additional allergic/immunologic complaints PMFSH Past Medical History Attestation statement: The following information was validated with the patient. Source: old records reviewed and nursing notes reviewed Medical History Cerumen debris on tympanic membrane Immunization counseling Wheezing Dizziness Adult general medical exam Screening for prostate cancer Screening for colon cancer Surgical History No pertinent past surgical history Social History Social History Household Members: Family Household Members Other:: sister Housing: House Alcohol intake: never Patient Tobacco Use Status: Never used Tobacco e-Cigarette/Vaping Use: Never Used Second Hand Smoke Exposure: No service: No Current occupational status: retired Current occupational exposures/hazards: No Cognitive needs: No Hearing needs: No Vision needs: No Physical Exam ED Vital Signs: Vital Signs - 24 hr 03/19/23 17:27 03/19/23 19:59 Temperature 97.8 F 98.0 F Pulse Rate 107 H 98 Respiratory Rate 18 20 Blood Pressure 154/85 H 146/85 H Pulse Oximetry 97 96 Oxygen Delivery Method Room Air Room Air BMI result Body Mass Index 33.9 Const General: cooperative, no acute distress, alert and awake Nutritional Appearance: well nourished Orientation/consciousness: patient oriented x3 Limitations: no limitations HENMT Head: Yes normal to inspection and Yes atraumatic Ears: hearing grossly normal bilaterally and external ears normal General nose exam: Normal external nose present, no nasal discharge noted and no epistaxis Face and sinus: Yes normal facial exam, No abrasion and No laceration Mouth: Normal oral and palatal mucosa present, no drooling and no muffled voice Eyes General: appearance normal, both eyes and all related structures Periorbital: periorbital findings normal Eyelids: Yes eyelids normal Conjunctivae: conjunctivae normal Pupils: Equal, round and reactive pupils present EOM: EOMs intact bilaterally Neck Neck: Yes normal visual inspection, Yes full ROM and Yes no lymphadenopathy Resp Effort & Inspection: normal respiratory effort and able to speak in complete sentences Auscultation: clear to auscultation bilaterally Cardio Rate: regular rate Rhythm: regular rhythm GI Inspection: Yes normal to inspection Palpation (GI): Soft to palpation, not firm, nontender, no guarding and not rigid Back/Spine/Pelvis Other: minimal bruising present to the upper left flank Neuro General: patient oriented x3 and moves all extremities Cranial nerves: Yes Equal, round and reactive pupils present Cognition (Neuro): normal cognition Motor exam (neuro): 5/5 motor strength present throughout Sensory Exam: Normal double simultaneous stimulation for sensation Coordination: [id number] test normal Extrem General: Yes normal to inspection, Yes full ROM and Yes capillary refill normal Psych Appearance: grossly normal Mental Status: mental status grossly normal Affect: normal affect Attitude: cooperative Thought process: Normal thought process present Thought content: Normal thought content present Insight: Good insight present (Psych) Course Course Course Narrative: RME performed by Niyah Wagner PA-C. Patient is a 72 year old assigned male at presenting to the emergency department with left flank pain after a fall. Imaging ordered. Patient placed back in the waiting room pending room availability and results. Medical Decision Making Medical Decision Making MDM Narrative: Patient is a 72 year old assigned male at with a history of DM and HTN presenting to the emergency department today with left flank pain after a fall. Patient's physical exam was as noted in the physical exam portion of this note. Patient's head and c-spine CTs showed no acute process. Patient's chest CT showed a posterior 11th rib fracture. I explained my physical exam findings as well as all test results to the patient. I answered all questions asked by the patient. I stressed the importance of the patient taking his medication as prescribed. I stressed the importance of the patient following up with his primary care provider. I stressed the importance of the patient returning to the emergency department immediately if his symptoms were to worsen or if he were to develop any dizziness, shortness of breath, difficulty breathing, chest pain, blurry vision, loss of vision, nausea, vomiting, abdominal pain, fever, chills, back pain, or any other complaints. Patient verbalized agreement and understanding with this treatment plan and discharge. Differential Diagnosis Differential Diagnoses: The differential diagnosis associated with the presentation includes Rib fracture Fall Independent Interpretation I performed an independent interpretation of an: CT Scan Interpretation: My interpretation is in agreement with the radiologist's impression of these imaging studies. CT HEAD WITHOUT IV CONTRAST CT CERVICAL SPINE WITHOUT IV CONTRAST INDICATION: Fall, injury COMPARISON: Fall/injury. TECHNIQUE: Multidetector CT acquisitions of the head and cervical spine were obtained without IV contrast. Multiplanar reformats were acquired and utilized for image interpretation. This CT examination was performed using dose optimization techniques as appropriate, variously including the following: *Automated exposure control *Adjustment of mA and/or kV according to patient size (this includes techniques or standardized protocols for targeted exams where dose is matched to indication/reason for exam; i.e. extremities or head) *Use of iterative reconstruction technique FINDINGS: HEAD: There is no intracranial hemorrhage, hydrocephalus, extra-axial surface collection, midline shift, or other herniation pattern. Gee to white matter differentiation is diffusely maintained without evidence of an evolved acute territorial infarct. The basilar cisterns are preserved. No significant soft tissue abnormality. No acute osseous abnormality. There are retention cysts within the maxillary sinuses bilaterally. Mastoid air cells are clear. Cerumen within the external auditory canals bilaterally. CERVICAL SPINE: There is anatomic alignment of the vertebral bodies and posterior elements. There is multilevel cervical spondylosis. There is no acute fracture and there is no acute subluxation. The craniocervical and atlantoaxial articulations are normal. There is no prevertebral soft tissue swelling. Atherosclerotic calcification involving the carotid rotations bilaterally. The visualized lung apices are clear. CT/CT head/brain wo IV con IMPRESSION: - No acute intracranial abnormality. - No acute osseous abnormality within the cervical spine. There is multilevel cervical spondylosis. Dictated By: Garfield Tobias MD Signed By: Electronically signed by Garfield Tobias MD 03/19/23 1837 EXAMINATION: CT CHEST WITHOUT CONTRAST CLINICAL INFORMATION: Fall, injury. COMPARISON: Chest x-ray 09/07/2021 TECHNIQUE: Multidetector volumetric CT imaging of the chest was done. Axial MIP volume rendering provided. Sagittal and coronal reformatted images were obtained. This CT examination was performed using dose optimization techniques as appropriate, variously including the following: *Automated exposure control *Adjustment of mA and/or kV according to patient size (this includes techniques or standardized protocols for targeted exams where dose is matched to indication/reason for exam; i.e. extremities or head) *Use of iterative reconstruction technique DLP: 354 mGy-cm FINDINGS: [employer] SECOND[employer] PROFESSIONAL: Lungs are expanded with mild cardiomegaly. LUNGS: The lungs are clear without acute pneumonic consolidation. There is a 1 mm nodule along the left superior major fissure in the upper lobe axial image 126/15. No additional pulmonary nodules seen. There is no mass or groundglass density. MEDIASTINUM: The thyroid lobes are symmetrical and normal. There is a small hypodense nodule left lobe on axial image 7/12. Central trachea and the bronchi widely patent. Heart size and the great vessels are normal caliber. No pericardial effusion seen. No abnormal size mediastinal or hilar lymph nodes seen. CORONARY ARTERY CALCIFICATION: Mild coronary artery calcifications are present. PLEURA: There is no pleural effusion. No pleural mass or thickening. AXILLA: There are small bilateral inguinal lymph nodes largest left axillary lymph node measures 1.2 cm. UPPER ABDOMEN: Visualized liver, spleen, pancreas, gallbladder and bilateral adrenal glands unremarkable. Suspected tiny sliding hiatal hernia the stomach is unremarkable. OSSEOUS STRUCTURES: No aggressive lytic or sclerotic process seen. Mild ventral spondylosis lower dorsal spine is noted. There is a nondisplaced fracture left posterior 11th rib. There is a small hemangioma T9 vertebra. CT/CT chest wo IV con IMPRESSION: Nondisplaced fracture left posterior 11th rib. No additional fracture seen involving bony thorax. Suspect small hypodense left thyroid nodule No evidence of pneumothorax or pleural effusion. Fleischner guidelines were followed. Dictated By: Raul Bernal MD Signed By: Electronically signed by Raul Bernal MD 03/19/231938 Radiology Impression Discussion of test interpretation with radiology: I have reviewed the radiologist's reading. Chronic Conditions Patient?s care impacted by: Diabetes and Hypertension Discharge Plan Discharge Clinical Impression: Closed rib fracture Patient Disposition: Home, Self-Care Instructions: Rib Fracture (ED) Additional Instructions: Follow up with your primary care provider. Return to the emergency department immediately if your symptoms worsen or if you develop any dizziness, shortness of breath, difficulty breathing, chest pain, blurry vision, loss of vision, nausea, vomiting, abdominal pain, fever, chills, back pain, or any other complaints. Prescriptions: No Action glipizide 10 mg tablet extended release 24hr 10 mg PO DAILY 90 Days Qty: 90 3RF metformin 500 mg tablet 500 mg PO BID 90 Days Qty: 180 3RF amlodipine 5 mg tablet 10 mg PO DAILY 90 Days Qty: 180 1RF (DME) FreeStyle Lite Strips Strip See Rx Instructions .ROUTE .MEDSUPPLY Qty: 200 4RF Rx Instructions: DX: E11.9, test blood sugar twice a day, 90 days lisinopril-hydrochlorothiazide 20-25 mg tablet 1 tab PO DAILY Qty: 90 1RF simvastatin 20 mg tablet 20 mg PO BEDTIME Qty: 90 0RF aspirin [Adult Low Dose Aspirin] 81 mg tablet,delayed release (DR/EC) 81 mg PO DAILY Referrals: Mauro Matamoros MD [Primary Care Provider] - Print Language: Citizen Of [place]
[2023-03-19 19:59] VITALS: BP 146/85; PULSE 98; RESP 20; TEMP 36.7; O2SAT 96
[2023-03-19] MEDS: Ketorolac Tromethamine 15 MG/ML VIAL IM (20:07)
--- NOTE | 2023-03-19 20:14 | PC.NURSE ---
This RN is covering for MANGO Potts, reviewed discharge instruction with pt, pt verbalized understanding, Pt reports 8/10 pain when taking a deep breath, pt medicated per mar, upon discharge, No respiratory distress, education on Rib fracture and body mechanics. Notified Mango Potts.
== END 2023-03-19 20:16 | disposition home or self-care (01) ==
LOC: HO.ED 20:08
PROVIDERS: Emergency Provider Student in an Organized Health Care Education/Training Program; PCP Family Medicine
DX: S22.32XA Fracture of one rib, left side, initial encounter for closed fracture (principal); W19.XXXA Unspecified fall, initial encounter; E11.9 Type 2 diabetes mellitus without complications; I10 Essential (primary) hypertension; M54.50 Low back pain, unspecified; Z79.84 Long term (current) use of oral hypoglycemic drugs; Z79.82 Long term (current) use of aspirin; Z79.899 Other long term (current) drug therapy; Y93.9 Activity, unspecified; Y92.9 Unspecified place or not applicable; Y99.9 Unspecified external cause status
CPT/HCPCS: 70450; 71250; 72125; 96372; 99284; J1885

== ENCOUNTER 2023-03-21 08:44 | Outpatient (AMB) | payer MEDICARE, MEDICAID, SELFPAY ==
--- NOTE | 2023-03-21 09:24 | A.OFFPC_ITS ---
Vital Signs 03/21/23 09:25 Height 5 ft 4 in Weight 203 lb BMI 34.8 BP 118/60 Blood Pressure Location Rt brachial Position Sitting Respiration 13 Pulse 95 Pulse Source Pulse Oximeter Temp 97.5 F Temp Source Oral Pulse Oximetry (%) 98 Oxygen Delivery Method Room Air Intake Visit Reasons: [facility] [place] [facility] fall follow up Intake Note: Patient was seen at the [facility] post trip and fall. Patient reports he is doing well, walking well, sitting well, and laying down causes some pain at night. Night Supervisor Required: No Accompanied by: self Allergies No Known Allergies Allergy (Verified 03/21/23 09:46) Medication List - Last Reconciled 03/21/23 by Shaunna Christensen, RAYMOND- amlodipine 10 mg (2 x 5 mg) PO DAILY 90 days aspirin (Adult Low Dose Aspirin) 81 mg PO DAILY blood sugar diagnostic (FreeStyle Lite Strips) DX: E11.9, test blood sugar twice a day, 90 days glipizide ER 10 mg PO DAILY 90 days lisinopril-hydrochlorothiazide 20-25 mg 1 tab PO DAILY metformin 500 mg PO BID 90 days simvastatin 20 mg PO BEDTIME Tobacco use date assessed: 01/24/23 Fall risk assessment: 1 Fall in past year Last assessed Fall Risk: 03/21/23 HPI HPI Comments History of Present Illness Details Here today for hospital discharge f/u Went to [facility] for c/o L flank pain after a mechanicall fall 1 week prior Imaging showed: There is a nondisplaced fracture left posterior 11th rib. Taking APAP BID, unsure of dose to help the pain. Unsure if it helps or not. Denies fever, chills, cough. Reports breathing is fine however heavy breathing hurts. Denies bloody sputum. No additional falls. Lives at home w/ sister. Does not have a life line. Reports never alone, always w/ sister. Incidental findings: cerumen impaction bilat, lung nodule, thyroid nodule Reports not seeing any specialists Taking all meds as directed. FOR[facility]LY [facility], [facility] Medical History Cerumen debris on tympanic membrane Immunization counseling Wheezing Dizziness Adult general medical exam Screening for prostate cancer Screening for colon cancer Surgical History No pertinent past surgical history Household Members: Family Household Members Other:: sister Housing: House Alcohol intake: current Patient Tobacco Use Status: Never used Tobacco e-Cigarette/Vaping Use: Never Used Second Hand Smoke Exposure: No service: No Current occupational status: retired Current occupational exposures/hazards: No Cognitive needs: No Hearing needs: No Vision needs: No Questionnaire Thrive Questionnaire Date Thrive assessed: 06/07/22 SAMANTHA-7 AMB Questionnaire SAMANTHA-7 Date SAMANTHA - 7 assessed: 09/30/21 Source: Developed by Drs. Rashad Dominique, Dorota Padilla, Fabian Dunham and colleagues, with an educational joslyn from [employer]. Physical exam (Primary Care) Vital Signs: Last Vital Signs Temp 97.5 F 03/21/23 09:25 Pulse 95 03/21/23 09:25 Resp 13 03/21/23 09:25 BP 118/60 03/21/23 09:25 Pulse Ox 98 03/21/23 09:25 Oxygen Delivery Method Room Air 03/21/23 09:25 BMI result Body Mass Index 34.8 Tobacco/Smoking Status: Tobacco use Status Tobacco use date assessed 01/24/23 03/21/23 09:32 Patient Tobacco Use Status Never used Tobacco 03/21/23 09:32 e-Cigarette/Vaping Use Never Used 03/21/23 09:32 Thrive Assessment: Date of Thrive Assessment Date Thrive assessed 06/07/22 03/21/23 09:32 Const Other: awake alert NAD Head atruamtic, PERRLA, EOMI Cerumen impaction bilat Speaking in full sentences RRR LS CTAB Bruising over left flank and lateral rib cage. No crepitus. Mild tenderness w/ palp over posterior rib cage Office Procedures Cerumen Removal From which ear canal was the cerumen removed: bilateral Removal: irrigation and cerumen loop/spoon Notes: patient tolerated procedure well (unable to fully clear canals bilat. ) and no complications [id number] Wax Removal by Spoon/Curette Assessment and Plan Assessment & Plan (1) Hospital discharge follow-up: Code(s): Z09 - Encounter for follow-up examination after completed treatment for conditions other than malignant neoplasm (2) Left rib fracture: Code(s): S22.32XA - Fracture of one rib, left side, initial encounter for closed fracture Qualifiers: Encounter type: subsequent encounter Fracture healing: with routine healing Fracture type: closed Rib fracture type: single rib Qualified Code(s): S22.32XD - Fracture of one rib, left side, subsequent encounter for fracture with routine healing (3) Impacted cerumen, bilateral: Code(s): H61.23 - Impacted cerumen, bilateral Plan: lavage/curette performed today w/ removal of some cerumen however unable to entirely clear. will tx w/ debrox and have him come back next week for lavage. (4) Lung nodule seen on imaging study: Code(s): R91.1 - Solitary pulmonary nodule Plan: incidental finding; defer to pcp for further mgmt (5) Thyroid nodule incidentally noted on imaging study: Code(s): E04.1 - Nontoxic single thyroid nodule (6) CAD in [place] artery: Code(s): I25.10 - Atherosclerotic heart disease of [place] coronary artery without angina pectoris Plan: cont statin and asa Medications: New carbamide peroxide 6.5% (Debrox) 5 drps otic (ears) DAILY 5 days 15 mL 0RF BILAT EARS Patient Instructions: Ok to take Tylenol 500 mg three times per day as needed for pain Please follow up w/ PCP to address incidental findings on image Coding Level of Care Code Est Pt Level 4 (39950) Diagnoses Hospital discharge follow-up Z09 Closed fracture of one rib of left side with routine healing, subsequent encounter S22.32XD Encounter type: subsequent encounter Fracture healing: with routine healing Fracture type: closed Rib fracture type: single rib Impacted cerumen, bilateral H61.23 Lung nodule seen on imaging study R91.1 Thyroid nodule incidentally noted on imaging study E04.1 CAD in [place] artery I25.10 CPT Codes Office Procedure - CPT: 26506-Flg Wax Removal by Spoon/Curette ([id number])
[2023-03-21 09:25] VITALS: BP 118/60; PULSE 95; RESP 13; TEMP 36.4; O2SAT 98; BMI 34.8
== END 2023-03-21 10:25 | disposition home or self-care (01) ==
PROVIDERS: PCP Family Medicine; Visit Provider Nurse Practitioner Family
DX: I25.10 Atherosclerotic heart disease of native coronary artery without angina pectoris (principal); Z09 Encounter for follow-up examination after completed treatment for conditions other than malignant neoplasm; S22.32XD Fracture of one rib, left side, subsequent encounter for fracture with routine healing; H61.23 Impacted cerumen, bilateral; R91.1 Solitary pulmonary nodule; E04.1 Nontoxic single thyroid nodule
CPT/HCPCS: 69210; 99214

== ENCOUNTER 2023-03-28 08:36 | Outpatient (AMB) | payer MEDICARE, MEDICAID, SELFPAY ==
[2023-03-28 08:57] VITALS: BP 128/64; PULSE 99; RESP 13; TEMP 36.4; O2SAT 99; BMI 34.7
--- NOTE | 2023-03-28 08:57 | MHC.PC.OV ---
Vital Signs 03/28/23 08:57 Height 5 ft 4 in Weight 202 lb 2 oz BMI 34.7 BP 128/64 Blood Pressure Location Rt brachial Position Sitting Respiration 13 Pulse 99 Pulse Source Pulse Oximeter Temp 97.6 F Temp Source Temporal Artery Scan Pulse Oximetry (%) 99 Oxygen Delivery Method Room Air Intake Visit Reasons: ear cleaning Performance Improvement Specialist Required: No Allergies No Known Allergies Allergy (Verified 03/28/23 09:03) Tobacco use date assessed: 01/24/23 Fall risk assessment: 1 Fall in past year Last assessed Fall Risk: 03/28/23 Dental Screening Dental Screen Date: 03/28/23 Did you have a dental visit in the last 12 months?: Yes Did you have a dental problem in the last 6 months where you did not have access to dental care?: No Was dental information given to patient?: Patient has dentist HPI ear cleaning HPI Details Pt is requesting to have his ears cleaned today. Pt reports a bruise on his ribs s/p fall after a mechanical trip and fall. He reports he went to the ED for this 03/19/23. Blood pressure today 128/64. He is on lisinopril-HCTZ 20-25mg daily and amlodipine 10mg. PFS Medical History Cerumen debris on tympanic membrane Immunization counseling Wheezing Dizziness Adult general medical exam Screening for prostate cancer Screening for colon cancer Surgical History No pertinent past surgical history Social History Household Members: Family Household Members Other:: sister Housing: House Alcohol intake: current Patient Tobacco Use Status: Never used Tobacco e-Cigarette/Vaping Use: Never Used Second Hand Smoke Exposure: No service: No Current occupational status: retired Current occupational exposures/hazards: No Cognitive needs: No Hearing needs: No Vision needs: No Questionnaire Thrive Questionnaire Date Thrive assessed: 06/07/22 SAMANTHA-7 AMB Questionnaire SAMANTHA-7 Date SAMANTHA - 7 assessed: 09/30/21 Source: Developed by Drs. Rashad Dominique, Dorota Padilla, Fabian Dunham and colleagues, with an educational joslyn from [employer]. Review of Systems Const Denies chills, Denies fatigue, Denies fever(s), Denies headache(s) and Denies weakness ENT Denies dizziness and Denies headache(s) Card Denies dyspnea Resp Denies cough, Denies dyspnea, Denies wheezing and Denies other (shortness of breath) Musc Denies numbness and Denies tingling Neuro Denies dizziness, Denies headache(s), Denies numbness, Denies tingling and Denies weakness Psych Denies anxiety and Denies depression Endo Denies fatigue Aller/Immun Denies wheezing Physical exam (Primary Care) Vital Signs: Last Vital Signs Temp 97.6 F 03/28/23 08:57 Pulse 99 03/28/23 08:57 Resp 13 03/28/23 08:57 BP 128/64 03/28/23 08:57 Pulse Ox 99 03/28/23 08:57 Oxygen Delivery Method Room Air 03/28/23 08:57 BMI result Body Mass Index 34.7 Tobacco/Smoking Status: Tobacco use Status Tobacco use date assessed 01/24/23 03/28/23 09:04 Patient Tobacco Use Status Never used Tobacco 03/28/23 09:04 e-Cigarette/Vaping Use Never Used 03/28/23 09:04 Thrive Assessment: Date of Thrive Assessment Date Thrive assessed 06/07/22 03/28/23 09:04 Const General: well developed; No acute distress Nutritional Appearance: well nourished and obese Orientation/consciousness: patient oriented x3 HENMT Head: Yes normocephalic and Yes atraumatic Eyes General: appearance normal, both eyes and all related structures Pupils: Equal, round and reactive pupils present EOM: EOMs intact bilaterally Resp Effort & Inspection: normal respiratory effort Neuro General: patient oriented x3 and gait normal Cranial nerves: Yes Equal, round and reactive pupils present Psych Affect: normal affect Assessment and Plan Assessment & Plan (1) Impacted cerumen, bilateral: Code(s): H61.23 - Impacted cerumen, bilateral Plan: Bilateral?cerumen?impactions After?irrigation: ?TMs?are?clear. He?can?continue?using?Debrox?drops (2) Essential hypertension: Code(s): I10 - Essential (primary) hypertension Plan: Blood?pressure?is?well?controlled.??Goal?is?less?than?140/90 Continue?current?medication?regimen (3) Contusion of rib on left side: Code(s): S20.212A - Contusion of left front wall of thorax, initial encounter Plan: Contusion?at?left?posterior?ribs?after?trip?and?fall. Patient?placed?something?in?his?walk?way?and?then?did?not?notice?it?and?tripped?over?it. No?fractures Can?use?ice?and?this?should?resolve?on?its?own. (4) Status post fall: Code(s): Z91.81 - History of falling Plan: Keep?walk?ways?clear Still?needs?to?see?an?eye?doctor Coding Level of Care Code Est Pt Level 4 (82506) Diagnoses Impacted cerumen, bilateral H61.23 Essential hypertension I10 Contusion of rib on left side S20.212A Status post fall Z91.81
== END 2023-03-28 09:42 | disposition home or self-care (01) ==
PROVIDERS: PCP Family Medicine; Visit Provider Family Medicine
DX: H61.23 Impacted cerumen, bilateral (principal); I10 Essential (primary) hypertension; S20.212A Contusion of left front wall of thorax, initial encounter; Z91.81 History of falling
CPT/HCPCS: 99214

== ENCOUNTER 2023-04-18 08:10 | Outpatient (AMB) | payer MEDICARE, MEDICAID, SELFPAY ==
--- NOTE | 2023-04-18 08:12 | MHC.PC.OV ---
Vital Signs 04/18/23 08:13 Height 5 ft 4 in Weight 201 lb BMI 34.5 BP 120/64 Blood Pressure Location Lt brachial Position Sitting Pulse 82 Pulse Source Pulse Oximeter Pulse Oximetry (%) 98 Oxygen Delivery Method Room Air Intake Visit Reasons: f/u htn, dm incidental findings on imaging Intake Note: Patient is here for a follow up on DM, HTN, and imaging. Allergies No Known Allergies Allergy (Verified 04/18/23 08:16) Tobacco use date assessed: 04/18/23 Fall risk assessment: No Falls in past year Last assessed Fall Risk: 04/18/23 HPI f/u htn, dm incidental findings on imaging HPI Details 73 y/o male presents to f/u HTN and diabetes. Blood pressure today 120/64. He is on lisinopril-HCTZ 20-25mg and amlodipine 10mg daily. A1c today 04/18/23 6.6%. HPI Comments History of Present Illness Details Documentation assistance for Mauro Matamoros MD, was provided by Jose Livingston, Freight Broker on 04/18/2023 8:51 AM EST. I, Dr. Matamoros, have read, observed, and verified documentation. [facility] Medical History Cerumen debris on tympanic membrane Immunization counseling Wheezing Dizziness Adult general medical exam Screening for prostate cancer Screening for colon cancer Surgical History No pertinent past surgical history Social History Household Members: Family Household Members Other:: sister Housing: House Alcohol intake: current Patient Tobacco Use Status: Never used Tobacco e-Cigarette/Vaping Use: Never Used Second Hand Smoke Exposure: No service: No Current occupational status: retired Current occupational exposures/hazards: No Cognitive needs: No Hearing needs: No Vision needs: No Questionnaire Thrive Questionnaire Date Thrive assessed: 06/07/22 SAMANTHA-7 AMB Questionnaire SAMANTHA-7 Date SAMANTHA - 7 assessed: 09/30/21 Source: Developed by Drs. Rashad Dominique, Dorota Padilla, Fabian Dunham and colleagues, with an educational joslyn from [employer]. Review of Systems Const Denies chills, Denies fatigue, Denies fever(s), Denies headache(s) and Denies weakness ENT Denies dizziness and Denies headache(s) Card Denies dyspnea Resp Denies cough, Denies dyspnea, Denies wheezing and Denies other (shortness of breath) Musc Denies numbness and Denies tingling Neuro Denies dizziness, Denies headache(s), Denies numbness, Denies tingling and Denies weakness Psych Denies anxiety and Denies depression Endo Denies fatigue Aller/Immun Denies wheezing Physical exam (Primary Care) Vital Signs: Last Vital Signs Pulse 82 04/18/23 08:13 BP 120/64 04/18/23 08:13 Pulse Ox 98 04/18/23 08:13 Oxygen Delivery Method Room Air 04/18/23 08:13 BMI result Body Mass Index 34.5 Tobacco/Smoking Status: Tobacco use Status Tobacco use date assessed 04/18/23 04/18/23 08:19 Patient Tobacco Use Status Never used Tobacco 04/18/23 08:14 e-Cigarette/Vaping Use Never Used 04/18/23 08:14 Thrive Assessment: Date of Thrive Assessment Date Thrive assessed 06/07/22 04/18/23 08:14 Const General: well developed; No acute distress Nutritional Appearance: well nourished Orientation/consciousness: patient oriented x3 [facility] Head: Yes normocephalic and Yes atraumatic Eyes General: appearance normal, both eyes and all related structures Pupils: Equal, round and reactive pupils present EOM: EOMs intact bilaterally Resp Effort & Inspection: normal respiratory effort Auscultation: clear to auscultation bilaterally Cardio Rate: regular rate Rhythm: regular rhythm Heart sounds: S1 normal heart sound present, S2 normal heart sound present, no gallops, no murmurs and no rubs Neuro General: patient oriented x3 and gait normal Cranial nerves: Yes Equal, round and reactive pupils present Psych Affect: normal affect Results AMB Hemoglobin A1c AMB Hemoglobin A1c 6.6 % Last Edit by Mariah Patel CMA on 04/18/23 08:38 Results Reviewed Results Reviewed: Laboratory Last Values Hgb A1c (Clinic) 6.6 % (4.0-6.0) H 04/18/23 08:36 Assessment and Plan Assessment & Plan (1) Essential hypertension: Code(s): I10 - Essential (primary) hypertension Plan: BP controlled. Goal < 140/90 Continue?current?medication?regimen (2) Diabetes type 2, controlled: Code(s): E11.9 - Type 2 diabetes mellitus without complications Plan: A1c?6.6%?is?good?control.??Goal?is?less?than?7.0% Continue?current?medication?regimen (3) CAD in [place] artery: Code(s): I25.10 - Atherosclerotic heart disease of [place] coronary artery without angina pectoris Plan: Stable (4) Lung nodule seen on imaging study: Code(s): R91.1 - Solitary pulmonary nodule Plan: Tiny?pulmonary?nodule?1?mm?in?size.??Less?than?4?mm?and?patient?is?a?nonsmoker Low?risk?for?any?malignancy?and?does?not?require?follow-up Orders: Orders AMB Hemoglobin A1c Today Z13.9 - Encounter for screening, unspecified Coding Level of Care Code Est Pt Level 3 (94837) Diagnoses Essential hypertension I10 Diabetes type 2, controlled E11.9 CAD in [place] artery I25.10 Lung nodule seen on imaging study R91.1
[2023-04-18 08:13] VITALS: BP 120/64; PULSE 82; O2SAT 98; BMI 34.5
== END 2023-04-18 08:56 | disposition home or self-care (01) ==
PROVIDERS: PCP Family Medicine; Visit Provider Family Medicine
DX: I10 Essential (primary) hypertension (principal); E11.9 Type 2 diabetes mellitus without complications; I25.10 Atherosclerotic heart disease of native coronary artery without angina pectoris; R91.1 Solitary pulmonary nodule
CPT/HCPCS: 83036; 99213

== ENCOUNTER 2023-07-20 06:17 | Day surgery (SDC) | payer MEDICARE, MEDICAID, SELFPAY ==
[2023-07-18 15:12] VITALS: BMI 32.8
--- NOTE | 2023-07-19 09:01 | HO.ANESPROP2 ---
Documented by User: Jackeline Douglas NP 07/19/23 09:07 HPI - Anesthesia Eval Consult details Narrative: 73yo M for Colonoscopy PHMx lists CAD. Pt denies. 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 PMFSH Active Problems Active Problems: All Active Problems (Updated 07/18/23 @ 15:18 by Ashley Aggarwal, MARRY) Contusion of rib on left side (Acute) Status post fall (Acute) Cerumen impaction (Acute) CAD in [place] artery (Acute) Thyroid nodule incidentally noted on imaging study (Acute) Hospital discharge follow-up (Acute) Impacted cerumen, bilateral (Acute) Lung nodule seen on imaging study (Acute) Left rib fracture (Acute) Vertigo (Acute) Hypercholesterolemia (Acute) Essential hypertension (Acute) Diabetes type 2, controlled (Acute) Past Medical History Medical History (Updated 07/18/23 @ 15:18 by Ashley Aggarwal RN) Vertigo Elevated cholesterol CAD (coronary artery disease) HTN (hypertension) Diabetes Cerumen debris on tympanic membrane Immunization counseling Wheezing Dizziness Adult general medical exam Screening for prostate cancer Screening for colon cancer Surgical History Surgical History (Updated 07/18/23 @ 15:17 by Ashley Aggarwal RN) H/O colonoscopy Social History Social History (Updated 07/18/23 @ 15:14 by Ashley Aggarwal RN) Household Members: Family Household Members Other:: sister Housing: House Alcohol intake: current Patient Tobacco Use Status: Never used Tobacco e-Cigarette/Vaping Use: Never Used Second Hand Smoke Exposure: No Use of substances other than those prescribed or required for medical reasons: No Are you DNR?: No Advance Directives: No Advance Directives Information Provided: Yes service: No Current occupational status: retired Current occupational exposures/hazards: No Cognitive needs: No Hearing needs: No Vision needs: No Meds Allergies Allergy/AdvReac Type Severity Reaction Status Date / Time No Known Allergies Allergy Verified 04/18/23 08:16 Home Medications Medication Instructions Recorded Confirmed Last Taken Type aspirin 81 mg tablet,delayed 81 mg PO DAILY 04/06/20 07/18/23 Unknown History release (Adult Low Dose Aspirin) Exam Height,Weight and Vital Signs: Height 5 ft 6 in Weight 92.079 kg Assessment and Plan Assessment Anesthesia Assessment: Chart Reviewed Documented by User: Robi Melissa MD 07/20/23 07:20 PMFSH Past Medical History Medical History (Updated 07/18/23 @ 15:18 by Ashley Aggarwal RN) Vertigo Elevated cholesterol CAD (coronary artery disease) HTN (hypertension) Diabetes Cerumen debris on tympanic membrane Immunization counseling Wheezing Dizziness Adult general medical exam Screening for prostate cancer Screening for colon cancer Family History Family history of problems with anesthesia: No Surgical History Surgical History (Updated 07/18/23 @ 15:17 by Ashley Aggarwal RN) H/O colonoscopy History of Problems with Anesthesia: No Social History Social History (Updated 07/18/23 @ 15:14 by Ashley Aggarwal RN) Household Members: Family Household Members Other:: sister Housing: House Alcohol intake: current Patient Tobacco Use Status: Never used Tobacco e-Cigarette/Vaping Use: Never Used Second Hand Smoke Exposure: No Use of substances other than those prescribed or required for medical reasons: No Are you DNR?: No Advance Directives: No Advance Directives Information Provided: Yes service: No Current occupational status: retired Current occupational exposures/hazards: No Cognitive needs: No Hearing needs: No Vision needs: No Meds Allergies Allergy/AdvReac Type Severity Reaction Status Date / Time No Known Allergies Allergy Verified 04/18/23 08:16 Home Medications Medication Instructions Recorded Confirmed Last Taken Type aspirin 81 mg tablet,delayed 81 mg PO DAILY 04/06/20 07/18/23 Unknown History release (Adult Low Dose Aspirin) Exam Airway Mallampati Class: III TM Dist: >3cm Neck ROM: Full Loose/Missing/Broken Teeth: Yes and Upper Assessment and Plan Assessment Anesthesia Assessment: Anesthesia Plan Discussed Final Anesthetic Review Family History of Problems with Anesthesia: No History of Problems with Anesthesia: No NPO: Yes ASA Class: III Final Preanesthetic Review: No Changes in Pt Med Stat, Meds/Allgs Chart Reviewed, Consent Obtained/Reviewed and Anes Risks/Benef Reviewed Patient Risk: Intermediate Procedure Risk: Low Anesthetic Plan Anesthetic Plan: TIVA Disposition: Standard PACU
[2023-07-20 06:56] VITALS: BMI 32.0
[2023-07-20 06:58] LABS: Glucose, Whole Blood 116 mg/dL (60-115)
[2023-07-20 07:03] VITALS: BP 175/74; PULSE 91; RESP 18; TEMP 36.4; O2SAT 97
[2023-07-20] MEDS: Lactated Ringers 1,000 ML 100 ML IVCONT (07:11)
[2023-07-20 08:23] VITALS: BP 108/67; PULSE 60; RESP 16; TEMP 36.6; O2SAT 100
--- NOTE | 2023-07-20 08:26 | PM.OP ---
Brief Operative Note Date of Service: 07/20/23 Pre-op diagnosis: Screening Post-op diagnosis: other (Colon polyp) Procedure: Colonoscopy to the cecum with cold snare polypectomy Surgeon: Rashad Gutierrez MD Anesthesia: MAC Was an Customer Management Specialist used for this Procedure?: No Estimated blood loss (mL): 2.0 Pathology: other (A. Cecal polyp) Condition: stable Disposition: PACU
--- NOTE | 2023-07-20 08:37 | OP_ITS ---
DATE OF SERVICE: 07/20/2023 SURGEON: Rashad Gutierrez MD INDICATIONS: The patient presents for evaluation of colorectal cancer screening and personal history of colon polyps. Full consent obtained from him for this, including risks of bleeding and perforation. PREOPERATIVE DIAGNOSIS: Colorectal cancer screening and personal history of colon polyps POSTOPERATIVE DIAGNOSIS: PROCEDURE PERFORMED: Colonoscopy to the cecum with cold snare polypectomy. ESTIMATED BLOOD LOSS: COMPLICATIONS: ANESTHESIA: Monitored anesthesia care. ASSISTANTS: SPECIMENS: POSTOPERATIVE DIAGNOSES: Colorectal cancer screening and personal history of colon polyps, colon polyp, diverticulosis, and internal hemorrhoids. DESCRIPTION OF PROCEDURE: The patient was placed in the left lateral decubitus position. The digital rectal exam revealed no abnormalities. The Olympus video pediatric colonoscope was entered into the rectum and advanced easily to the cecum. Once in the cecum, I did identify cecal pouch with appendiceal orifice and a normal-appearing ileocecal valve. The entire cecum was well visualized and appeared normal other than an approximately 5 or 6 mm slightly raised polyp, which was removed by cold snare polypectomy and recovered by suction. The polypectomy site appeared clean, without any residual polyp nor significant bleeding. The remainder of the cecum and ileocecal valve appeared normal. The scope was slowly withdrawn, assessing all mucosal surfaces carefully. After suctioning and irrigating, preparation was excellent throughout the colon. I did not visualize any other polyps, colitis, nor angiodysplasia. There was a mild amount of sigmoid diverticulosis. In the rectum, scope was retroflexed visualizing internal hemorrhoids, but no other pathology. The rectal mucosa appeared normal. The scope was straightened and withdrawn from the patient. He tolerated the procedure well and was returned to recovery area in stable condition. IMPRESSION: 1. Colon polyp. 2. Diverticulosis. 3. Internal hemorrhoids. PLAN: The results of the pathology will be checked. I would recommend a repeat colonoscopy in 3 years for further screening given his previous history. He was advised not to use any aspirin and NSAIDs for 1 week. MD MIGUELANGEL Martin/DAVID / [id number] MTDLuis Alberto
[2023-07-20 08:38] VITALS: BP 137/73; PULSE 69; RESP 18; O2SAT 100
[2023-07-20 08:53] VITALS: BP 140/71; PULSE 68; RESP 20; TEMP 36.6; O2SAT 97
== END 2023-07-20 09:16 | disposition home or self-care (01) ==
PROVIDERS: PCP Family Medicine; Visit Provider Internal Medicine
PROC: 0DJD8ZZ Inspection of Lower Intestinal Tract, Via Natural or Artificial Opening Endoscopic (ICD-10-PCS; CPT 45378; principal; 2023-07-20 07:30)
DX: Z12.11 Encounter for screening for malignant neoplasm of colon (principal); Z86.010 Personal history of colon polyps; D12.0 Benign neoplasm of cecum; K57.30 Diverticulosis of large intestine without perforation or abscess without bleeding; K64.8 Other hemorrhoids; I10 Essential (primary) hypertension; E78.5 Hyperlipidemia, unspecified; E11.9 Type 2 diabetes mellitus without complications; Z79.82 Long term (current) use of aspirin; Z79.84 Long term (current) use of oral hypoglycemic drugs; Z79.899 Other long term (current) drug therapy
CPT/HCPCS: 45385; 82947; 88305; J2371; J2704

== ENCOUNTER 2023-08-15 08:17 | Outpatient (AMB) | payer MEDICARE, MEDICAID, SELFPAY ==
--- NOTE | 2023-08-15 08:42 | A.OFFPC_ITS ---
Vital Signs 08/15/23 08:48 Height 5 ft 6 in Weight 201 lb BMI 32.4 BP 118/56 L Blood Pressure Location Rt brachial Position Sitting Respiration 13 Pulse 78 Pulse Source Pulse Oximeter Pulse Oximetry (%) 97 Oxygen Delivery Method Room Air Intake Visit Reasons: f/u htn, dm Intake Note: Patient is here to follow up for blood pressure and diabetes. Patient reports he has no concerns. Patient wants to inform provider he had a colonoscopy completed recently. 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 Accompanied by: Self / Same As Patient Allergies No Known Allergies Allergy (Verified 08/15/23 08:53) Medication List - Last Reconciled 08/15/23 by Mauro Matamoros MD amlodipine 10 mg (2 x 5 mg) PO DAILY 90 days aspirin (Adult Low Dose Aspirin) 81 mg PO DAILY blood sugar diagnostic (FreeStyle Lite Strips) DX: E11.9, test blood sugar twice a day, 90 days carbamide peroxide 6.5% (Debrox) 5 drps otic (ears) DAILY 5 days glipizide ER 10 mg PO DAILY 90 days lisinopril-hydrochlorothiazide 20-25 mg 1 tab PO DAILY metformin 500 mg PO BID 90 days simvastatin 20 mg PO BEDTIME Tobacco use date assessed: 08/15/23 Fall risk assessment: No Falls in past year Last assessed Fall Risk: 08/15/23 Dental Screening Dental Screen Date: 08/15/23 Did you have a dental visit in the last 12 months?: No Did you have a dental problem in the last 6 months where you did not have access to dental care?: No Was dental information given to patient?: Patient has dentist HPI f/u htn, dm HPI Details 73 y/o male presents to f/u diabetes, hy pertension. A1c today 08/15/23 7.0%. He is on metformin 500mg b.i.d, glipizide 10mg daily. Blood pressure today 118/56. He is on amlodipine 10mg , lisinopril-HCTZ 20-25mg. He reports he had gotten a colonoscopy and they recommended a 4 year follow-up. 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 [facility] Medical History (Updated 08/15/23 @ 09:16 by Jose Livingston) Screening for colon cancer Vertigo Elevated cholesterol CAD (coronary artery disease) HTN (hypertension) Diabetes Cerumen debris on tympanic membrane Immunization counseling Wheezing Dizziness Adult general medical exam Screening for prostate cancer Surgical History (Updated 07/18/23 @ 15:17 by Ashley Aggarwal RN) H/O colonoscopy Social History (Updated 08/15/23 @ 08:56 by Leena Stanford CMA) Household Members: Family Household Members Other:: sister Housing: House 75 years or older and lives alone: No Alcohol intake: never Patient Tobacco Use Status: Never used Tobacco e-Cigarette/Vaping Use: Never Used Second Hand Smoke Exposure: No service: No Current occupational status: retired Current occupational exposures/hazards: No Cognitive needs: No Hearing needs: No Vision needs: No Questionnaire PHQ-9 Over the last 2 weeks, how often have you been bothered by any of the following problems? 1. Little interest or pleasure in doing things: not at all 2. Feeling down, depressed, or hopeless: not at all 3. Trouble falling or staying asleep, or sleeping too much: not at all 4. Feeling tired or having little energy: not at all 5. Poor appetite or overeating: not at all 6. Feeling bad about yourself - or that you are a failure or have let yourself or your family down: not at all 7. Trouble concentrating on things, such as reading the newspaper or watching television: not at all 8. Moving or speaking so slowly that other people could have noticed. Or the op posite - being so fidgety or restless that you have been moving around a lot more than usual: not at all 9. Thoughts that you would be better off or of hurting yourself in some way: not at all Total score: 0 Depression Screening Interpretation: Negative Depression Screening Done: Yes 87642 - PHQ-9 Billing: Yes Source: Developed by Drs. Rashad oDminique, Dorota Padilla, Fabian Dunham and colleagues, with an educational joslyn from [employer]. Thrive Questionnaire Date Thrive assessed: 08/15/23 I am a: Patient What is your living situation today?: I have a steady place to live Within the past 12 months, did the food you bought not last and you didn't have the money to get more?: Never true Do you have trouble paying for medicines?: No Do you have trouble getting transportation to medical appointments?: No Do you have trouble paying your heating and electricity bill?: No Do you have trouble taking care of your child, family member or friend?: No Do you have trouble with day-to-day activities such as bathing, preparing meals, shopping, managing finances, etc.?: No Are you currently unemployed and looking for a job?: No Are you interested in more education?: No Please select the resources that you would like help with: None Currently or been in a relationship where the following occur: no concerns reported THRIVE Score: 0 AUDIT C Alcohol Use Questionnaire (AUDIT-C) 1. How often do you have a drink containing alcohol?: Never 3. How often do you have six or more drinks on one occasion?: Never Total Score: 0 SAMANTHA-7 AMB Questionnaire SAMANTHA-7 Date SAMANTHA - 7 assessed: 08/15/23 Feeling nervous, anxious, or on edge: 0 = Not at all Not being able to stop or control worryin = Not at all Worrying too much about different things: 0 = Not at all Trouble relaxin = Not at all Being so restless that it is hard to sit still: 0 = Not at all Becoming easily annoyed or irritable: 0 = Not at all Feeling afraid as if something awful might happen: 0 = Not at all Total SAMANTHA-7 score (0-4 normal; 5-9 mild; 10-14 moderate; 15-21 severe): 0 Source: Developed by Drs. Rashad Dominique, Dorota Padilla, Fabian Dunham and colleagues, with an educational joslyn from [employer]. SAMANTHA-7 Assessment Billing SAMANTHA-7 Assessment Tool: SAMANTHA-7 Assessment 29185 Review of Systems Const Denies chills, Denies fatigue, Denies fever(s), Denies headache(s) and Denies weakness ENT Denies dizziness and Denies headache(s) Card Denies chest pain, Denies lightheadedness, Denies dyspnea and Denies other (Palpitations) Resp Denies cough, Denies dyspnea, Denies wheezing and Denies other ( shortness of breath) Musc Denies numbness and Denies tingling Neuro Denies dizziness, Denies headache(s), Denies numbness, Denies tingling, Denies paresthesias and Denies weakness Psych Denies anxiety and Denies depression Endo Denies fatigue Aller/Immun Denies wheezing Physical exam (Primary Care) Vital Signs: Last Vital Signs Pulse 78 08/15/23 08:48 Resp 13 08/15/23 08:48 BP 118/56 L 08/15/23 08:48 Pulse Ox 97 08/15/23 08:48 Oxygen Delivery Method Room Air 08/15/23 08:48 BMI result Body Mass Index 32.4 Tobacco/Smoking Status: Tobacco use Status Tobacco use date assessed 08/15/23 08/15/23 08:56 Patient Tobacco Use Status Never used Tobacco 08/15/23 08:56 e-Cigarette/Vaping Use Never Used 08/15/23 08:56 PHQ-9: PHQ-9 Score PHQ-9: Total score 0 08/15/23 09:03 Depression Screening Interpretation: Negative Thrive Assessment: Date of Thrive Assessment Date Thrive assessed 08/15/23 08/15/23 09:02 Currently or been in a relationship where the following occur: no concerns reported Const General: no acute distress and well developed Nutritional Appearance: well nourished Orientation/consciousness: patient oriented x3 HENMT Head: Yes normocephalic and Yes atraumatic Eyes General: appearance normal, both eyes and all related structures Pupils: Equal, round and reactive pupils present EOM: EOMs intact bilaterally Resp Effort & Inspection: normal respiratory effort Auscultation: clear to auscultation bilaterally Cardio Rate: regular rate Rhythm: regular rhythm Heart sounds: S1 normal heart sound present, S2 normal heart sound present, no gallops, no murmurs and no rubs Neuro General: patient oriented x3 and gait normal Cranial nerves: Yes Equal, round and reactive pupils present Psych Affect: normal affect Results AMB Hemoglobin A1c AMB Hemoglobin A1c 7.0 % Last Edit by Leena Stanford CMA on 08/15/23 09:05 Results Reviewed Results Reviewed: Laboratory Last Values Hgb A1c (Clinic) 7.0 % (4.0-6.0) H 08/15/23 09:02 Assessment and Plan Assessment & Plan (1) Diabetes type 2, controlled: Code(s): E11.9 - Type 2 diabetes mellitus without complications Plan: A1c?7.0%?today.??Goal?is?less?than?7.0% We?discussed?working?at?a ?diabetic?diet?lower?in?sugars?and?starches.??We?discussed?exercise?and?weight?l oss. Encouraged?weight?loss?and?he?will?work?at?this No?medication?changes?were?made?today Still?has?not?had?a?diabetic ?eye?exam.??Have?been?numerous?referrals.??Patient?specifically?wants?to?see? ?Uriel?at?[facility] [place]so?I?have?made?this?referral.??Spoke?to?office?staff?to?help?h im?get?scheduled. (2) Essential hypertension: Code(s): I10 - Essential (primary) hypertension Plan: Blood?pressure?is?controlled.??Goal?is?less?than?140/90 Continue?current?medication?regimen Increase?hydration (3) Screening for colon cancer: Code(s): Z12.11 - Encounter for screening for malignant neoplasm of colon Plan: Patient?had?colonoscopy?recently?and?has?polyps.??He?was?told?to?follow-up?in?4? years?with??Brenda; 2027 Orders: Orders AMB Hemoglobin A1c Today E11.9 - Type 2 diabetes mellitus without complications Prostate Specific Antigen Scr Today Z12.5 - Encounter for screening for malignant neoplasm of prostate UA and rflx microscopic Today Z00.00 - Encounter for general adult medical examination without abnormal findings Comprehensive [place]. Panel Fast Today Z00.00 - Encounter for general adult medical examination without abnormal findings Complete Blood Count Auto Diff Today Z00.00 - Encounter for general adult medical examination without abnormal findings Lipid Panel Today Z00.00 - Encounter for general adult medical examination without abnormal findings Microalbumin, Random (w Creat) Today I10 - Essential (primary) hypertension TSH reflex Free T4 Today Z00.00 - Encounter for general adult medical examination without abnormal findings Coding Level of Care Code Est Pt Level 3 (78752) Diagnoses Diabetes type 2, controlled E11.9 Essential hypertension I10 Screening for colon cancer Z12.11 Additional Codes SAMANTHA-7 Assessment Billing - SAMANTHA-7 Assessment Tool: SAMANTHA-7 Assessment 59906 ([id number])
[2023-08-15 08:48] VITALS: BP 118/56; PULSE 78; RESP 13; O2SAT 97; BMI 32.4
== END 2023-08-15 09:23 | disposition home or self-care (01) ==
PROVIDERS: PCP Family Medicine; Visit Provider Family Medicine
DX: E11.9 Type 2 diabetes mellitus without complications (principal); I10 Essential (primary) hypertension; Z12.11 Encounter for screening for malignant neoplasm of colon
CPT/HCPCS: 83036; 99213

== ENCOUNTER 2023-10-12 08:08 | Outpatient (REF) | payer MEDICARE, MEDICAID, SELFPAY ==
[2023-10-12 11:17] LABS: Appearance Urine Clear; Color Urine Yellow; Glucose Urine UA Negative (Negative); Leukocyte Esterase Urine Negative (Negative); Nitrite Urine Negative (Negative); Specific Gravity - Urine 1.015 (1.005-1.025); Urine Blood Negative (Negative); Urine Ketones Negative (Negative); Urine Protein Negative (Neg-Trace)
[2023-10-12 11:21] LABS: MANUAL DIFF FLAG NO
[2023-10-12 11:31] LABS: Basophils Percent Auto 0.7 % (0-2); Eosinophils Absolute Auto 0.2 X10*3/uL (0.0-0.4); Hemoglobin 14.8 g/dl (14.0-18.0); Imm Gran Abs Auto 0.02 X10*3/uL (0.00-0.03); Imm Gran Pct Auto 0.4 % (0.0-0.4); Lymphocytes Absolute Auto 1.2 X10*3/uL (1.2-4.9); Mean Corpuscular HGB Conc 32.9 g/dl (31.0-36.0); Mean Corpuscular Hemoglobin 28.5 pg (27.0-33.0); Mean Corpuscular Volume 86.7 fL (80.0-98.0); Mean Platelet Volume 9.7 fL (9.4-12.4); Monocytes Absolute Auto 0.5 X10*3/uL (0.1-1.2); Monocytes Percent Auto 8.3 % (2-11); Neutrophils Absolute Auto 3.8 x10*3/uL (2.0-8.3); Neutrophils Percent Auto 66.6 % (45-73); Platelet Count 193 X10*3/uL (160-400); Red Blood Count 5.19 X10*6/uL (4.60-5.80); Red Cell Distribution Width 14.7 % (11.0-16.0); White Blood Count 5.7 X10*3/uL (4.8-10.8)
[2023-10-12 11:52] LABS: Creatinine Urine 68.72 mg/dL; Microalbum/Creatinine Ratio Ur 10.1 ug/mg cr (<30)
[2023-10-12 12:08] LABS: Prostate Specific Antigen Scr 2.95 ng/mL (<0.05-4.0)
[2023-10-12 12:10] LABS: Alanine Aminotransferase 19 U/L (0-40); Albumin Level 4.2 g/dL (3.5-5.0); Alkaline Phosphatase 72 U/L (39-117); Anion Gap 14 (12-20); Aspartate Amino Transferase 17 U/L (5-37); Bilirubin Total 0.5 mg/dL (0.0-1.0); Blood Urea Nitrogen 22 mg/dL (9-16); Calcium 9.3 mg/dL (8.4-10.2); Carbon Dioxide 29 mmol/L (22-29); Chloride 101 mmol/L (96-108); Cholesterol 153 mg/dL (<200); Estimated Glomerular Filt Rate > 60; Glucose Fasting 116 mg/dL (60-99); HDL Cholesterol 44 mg/dL (>40); LDL Cholesterol Calculated 85 mg/dL (<100); Potassium 4.5 mmol/L (3.3-5.1); Sodium 139 mmol/L (135-145); TSH reflex Free T4 0.82 uIU/mL (0.32-4.0); Total Protein 7.2 g/dL (6.5-8.0); Triglycerides 121 mg/dL (<150)
== END 2023-10-12 08:09 | disposition home or self-care (01) ==
LOC: HO.WFDLDS 08:08
PROVIDERS: Visit Provider Family Medicine
DX: Z00.00 Encounter for general adult medical examination without abnormal findings (principal); I10 Essential (primary) hypertension; Z12.5 Encounter for screening for malignant neoplasm of prostate
CPT/HCPCS: 36415; 80053; 80061; 81003; 82043; 82570; 84153; 84443; 85025

== ENCOUNTER 2023-11-16 13:39 | Outpatient (AMB) | payer MEDICARE, MEDICAID, SELFPAY ==
[2023-11-16 14:24] VITALS: BP 106/66; PULSE 89; RESP 15; TEMP 36.1; O2SAT 99; BMI 32.8
--- NOTE | 2023-11-16 14:24 | A.OFFPC_ITS ---
Vital Signs 11/16/23 14:24 Height 5 ft 6 in Weight 203 lb 6 oz BMI 32.8 BP 106/66 Blood Pressure Location Rt brachial Position Sitting Respiration 15 Pulse 89 Pulse Source Pulse Oximeter Temp 97 F Temp Source Temporal Artery Scan Pulse Oximetry (%) 99 Oxygen Delivery Method Room Air Intake Visit Reasons: Extended exam with f/u labs and health maint. Manager Test Required: No Accompanied by: Self / Same As Patient Allergies No Known Allergies Allergy (Verified 11/16/23 14:30) Tobacco use date assessed: 11/16/23 Fall risk assessment: No Falls in past year Last assessed Fall Risk: 11/16/23 Dental Screening Dental Screen Date: 11/16/23 Did you have a dental visit in the last 12 months?: Yes Did you have a dental problem in the last 6 months where you did not have access to dental care?: No Was dental information given to patient?: Patient has dentist HPI Extended exam with f/u labs and health maint. HPI Details 73 y/o male presents for an extended exa m with f/u labs and health maintenance. Labs were drawn 10/12/23. Reviewed labs with pt. Elevated fasting glucose of 116. Triglycerides 121. TC 153. LDL 85. HDL 44. PSA 2.95. Blood pressure today 106/66. He is on amlodipine 10mg, lisinopril-HCTZ 20-25mg daily. A1c today 11/16/23 7.0%. He notes he keeps an active lifestyle. [facility] Medical History Screening for colon cancer Vertigo Elevated cholesterol CAD (coronary artery disease) HTN (hypertension) Diabetes Cerumen debris on tympanic membrane Immunization counseling Wheezing Dizziness Adult general medical exam Screening for prostate cancer Surgical History H/O colonoscopy Social History Household Members: Family Household Members Other:: sister Housing: House 75 years or older and lives alone: No Alcohol intake: never Patient Tobacco Use Status: Never used Tobacco e-Cigarette/Vaping Use: Never Used Second Hand Smoke Exposure: No service: No Current occupational status: retired Current occupational exposures/hazards: No Cognitive needs: No Hearing needs: No Vision needs: No Questionnaire PHQ-9 Over the last 2 weeks, how often have you been bothered by any of the following problems? 1. Little interest or pleasure in doing things: not at all 2. Feeling down, depressed, or hopeless: not at all 3. Trouble falling or staying asleep, or sleeping too much: not at all 4. Feeling tired or having little energy: not at all 5. Poor appetite or overeating: not at all 6. Feeling bad about yourself - or that you are a failure or have let yourself or your family down: not at all 7. Trouble concentrating on things, such as reading the newspaper or watching television: not at all 8. Moving or speaking so slowly that other people could have noticed. Or the opposite - being so fidgety or restless that you have been moving around a lot more than usual: not at all 9. Thoughts that you would be better off or of hurting yourself in some way: not at all Total score: 0 Depression Screening Interpretation: Negative Depression Screening Done: Yes 35013 - PHQ-9 Billing: Yes Source: Developed by Drs. Rashad Dominique, Dorota Padilla, Fabian Dunham and colleagues, with an educational joslyn from [employer]. Thrive Questionnaire Date Thrive assessed: 11/16/23 I am a: Patient What is your living situation today?: I have a steady place to live Within the past 12 months, did the food you bought not last and you didn't have the money to get more?: Never true Do you have trouble paying for medicines?: No Do you have trouble getting transportation to medical appointments?: No Do you have trouble paying your heating and electricity bill?: No Do you have trouble taking care of your child, family member or friend?: No Do you have trouble with day-to-day activities such as bathing, preparing meals, shopping, managing finances, etc.?: No Are you currently unemployed and looking for a job?: No Are you interested in more education?: No Please select the resources that you would like help with: None THRIVE Score: 0 AUDIT C Alcohol Use Questionnaire (AUDIT-C) 1. How often do you have a drink containing alcohol?: Never 3. How often do you have six or more drinks on one occasion?: Never Total Score: 0 SAMANTHA-7 AMB Questionnaire SAMANTHA-7 Date SAMANTHA - 7 assessed: 11/16/23 Feeling nervous, anxious, or on edge: 0 = Not at all Not being able to stop or control worryin = Not at all Worrying too much about different things: 0 = Not at all Trouble relaxin = Not at all Being so restless that it is hard to sit still: 0 = Not at all Becoming easily annoyed or irritable: 0 = Not at all Feeling afraid as if something awful might happen: 0 = Not at all Total SAMANTHA-7 score (0-4 normal; 5-9 mild; 10-14 moderate; 15-21 severe): 0 Source: Developed by Drs. Rashad Dominique, Dorota Padilla, Fabian Dunham and colleagues, with an educational joslyn from [employer]. SAMANTHA-7 Assessment Billing SAMANTHA-7 Assessment Tool: SAMANTHA-7 Assessment 88390 Review of Systems Const Denies chills, Denies fatigue, Denies fever(s), Denies headache(s) and Denies weakness Eyes Denies change in vision ENT Denies dizziness, Denies headache(s), Denies hearing loss, Denies nasal congestion, Denies sinus pain, Denies sinus pressure and Denies sore throat Card Denies chest pain, Denies lightheadedness, Denies dyspnea and Denies other (palpitations) Resp Denies cough, Denies dyspnea and Denies wheezing GI Denies abdominal pain, Denies melena, Denies hematochezia, Denies change in bowel habits, Denies dyspepsia and Denies nausea Denies hematuria and Denies dysuria Musc Denies abnormal gait, Denies myalgias, Denies arthralgias, Denies numbness and Denies tingling Skin/Breast Denies rash, Denies unusual bruising and Denies wounds Neuro Denies abnormal gait, Denies dizziness, Denies headache(s), Denies memory loss, Denies numbness, Denies Sensory deficit (Neuro), Denies tingling and Denies weakness Psych Denies anxiety, Denies depression and Denies memory loss Endo Denies cold intolerance, Denies fatigue, Denies heat intolerance, Denies polydipsia and Denies polyuria Yakov/Lymph Denies easy bleeding and Denies easy bruising Aller/Immun Denies wheezing Physical exam (Primary Care) Vital Signs: Last Vital Signs Temp 97 F 11/16/23 14:24 Pulse 89 11/16/23 14:24 Resp 15 11/16/23 14:24 BP 106/66 11/16/23 14:24 Pulse Ox 99 11/16/23 14:24 Oxygen Delivery Method Room Air 11/16/23 14:24 BMI result Body Mass Index 32.8 Tobacco/Smoking Status: Tobacco use Status Tobacco use date assessed 11/16/23 11/16/23 14:31 Patient Tobacco Use Status Never used Tobacco 11/16/23 14:31 e-Cigarette/Vaping Use Never Used 11/16/23 14:31 PHQ-9: PHQ-9 Score PHQ-9: Total score 0 11/16/23 14:33 Depression Screening Interpretation: Negative Thrive Assessment: Date of Thrive Assessment Date Thrive assessed 11/16/23 11/16/23 14:33 Const General: no acute distress, well developed, alert and awake Nutritional Appearance: well nourished Orientation/consciousness: patient oriented x3 HENMT Head: Yes normocephalic and Yes atraumatic Ears: hearing grossly normal bilaterally and TM's normal bilaterally General nose exam: Normal external nose present and Normal nares present Mouth: Normal oral and palatal mucosa present and moist mucous membranes Teeth and gingiva: dentition normal Throat: Yes posterior oropharynx normal Eyes General: appearance normal, both eyes and all related structures Pupils: Equal, round and reactive pupils present and Pupil accommodation reflex normal EOM: EOMs intact bilaterally Neck Neck: Yes normal visual inspection, Yes no lymphadenopathy and Yes trachea midline Thyroid: Thyroid normal Carotids: no bruits Lymphatic: no lymphadenopathy noted Chest Chest palpation & inspection: normal inspection of the chest Resp Effort & Inspection: normal respiratory effort Auscultation: clear to auscultation bilaterally Cardio Rate: regular rate Rhythm: regular rhythm Heart sounds: S1 normal heart sound present, S2 normal heart sound present, no gallops, no murmurs and no rubs Bruits: no abdominal aortic bruits and no carotid bruits GI Palpation (GI): No Abdominal aortic bruit present, Soft to palpation, nontender, No hepatosplenomegaly present and No Rebound tenderness present Auscultation: normal bowel sounds General: Yes no CVA tenderness Back/Spine/Pelvis Back: no CVA tenderness Cervical Spine: cervical ROM normal and No Cervical spine tenderness Thoracic/Lumbar Spine: thoraco-lumbar ROM normal, No pain with thoraco-lumbar ROM, No thoracic spinal tenderness and No lumbar spinal tenderness Skin Lesions: no lesions Rashes: no rashes Trauma: no lacerations or abrasions Wounds: no wounds Nails: normal Neuro General: patient oriented x3 Cranial nerves: Yes Equal, round and reactive pupils present Cognition (Neuro): normal cognition Gait exam (Neuro): Normal gait present Motor exam (neuro): 5/5 motor strength present throughout Sensory Exam: No Sensory deficit (Neuro) Deep tendon reflexes (DTR's): Right patellar reflex intensity grade: 2+ and Left patellar reflex intensity grade: 2+ Extrem General: Yes normal to inspection and No edema Psych Appearance: grossly normal Affect: normal affect Attitude: cooperative Thought process: Normal thought process present Results AMB Hemoglobin A1c AMB Hemoglobin A1c 7.0 % Last Edit by YARIEL Gaines on 11/16/23 15:3 7 Assessment and Plan Assessment & Plan (1) Essential hypertension: Code(s): I10 - Essential (primary) hypertension Plan: Blood?pressure?is?controlled.??Goal?is?less?than?130/80 Continue?current?medications (2) Diabetes type 2, controlled: Code(s): E11.9 - Type 2 diabetes mellitus without complications Plan: A1c?7.0%.??Fairly?good?control.??Goal?is?7% Continue?current?medications Encouraged?diabetic?diet?exercise?and?some?weight?loss Patient?says?he?had?a?recent?eye?exam.??He?did?not?recall?who?his?eye?doctor?is. ??He?says?he?will?bring?the?report?to?his?next?visit (3) Hypercholesterolemia: Code(s): E78.00 - Pure hypercholesterolemia, unspecified Plan: LDL?cholesterol?is?above?goal?of?less?than?70.??He?is?taking?simvastatin?20?mg?d aily Will?switch?to?atorvastatin?20?mg?daily Will?follow-up?in?a?few?months (4) CAD in [place] artery: Code(s): I25.10 - Atherosclerotic heart disease of [place] coronary artery without angina pectoris Plan: Stable As?above,?LDL?cholesterol?is?above?goal-see?above (5) Screening for prostate cancer: Code(s): Z12.5 - Encounter for screening for malignant neoplasm of prostate Plan: PSA?was?within?normal?range Continue?annual?screen (6) Screening for colon cancer: Code(s): Z12.11 - Encounter for screening for malignant neoplasm of colon Plan: Had?recent?colonoscopy?and?it?was?recommended?he?follow- up?in?8?with??Gutierrez?due?to?some?polyps. (7) Cerumen impaction: Code(s): H61.20 - Impacted cerumen, unspecified ear Plan: Mild?cerumen.??No?change?in?hearing?or?irritation He?can?use?Debrox?drops?as?needed (8) Adult general medical exam: Code(s): Z00.00 - Encounter for general adult medical examination without abnormal findings Plan: 73-year-old?male?presents?for?an?extended?exam Encouraged?healthy?diet?with?active?lifestyle?and?plenty?of?exercise Orders: Orders AMB Hemoglobin A1c Today E11.9 - Type 2 diabetes mellitus without complications Medications: New atorvastatin 20 mg PO BEDTIME 90 days 90 tabs 3RF Discontinued simvastatin Discontinued Reason: Doctor's Order 20 mg PO BEDTIME 90 tabs 3RF Coding Level of Care Code Est Pt Level 4 (73939) Diagnoses Essential hypertension I10 Diabetes type 2, controlled E11.9 Hypercholesterolemia E78.00 CAD in [place] artery I25.10 Screening for prostate cancer Z12.5 Screening for colon cancer Z12.11 Cerumen impaction H61.20 Adult general medical exam Z00.00 Additional Codes SAMANTHA-7 Assessment Billing - SAMANTHA-7 Assessment Tool: SAMANTHA-7 Assessment 52013 ([id number])
== END 2023-11-16 16:02 | disposition home or self-care (01) ==
PROVIDERS: PCP Family Medicine; Visit Provider Family Medicine
DX: Z00.00 Encounter for general adult medical examination without abnormal findings (principal); E11.9 Type 2 diabetes mellitus without complications; I10 Essential (primary) hypertension; E78.00 Pure hypercholesterolemia, unspecified; I25.10 Atherosclerotic heart disease of native coronary artery without angina pectoris; Z12.5 Encounter for screening for malignant neoplasm of prostate; Z12.11 Encounter for screening for malignant neoplasm of colon
CPT/HCPCS: 83036; 99214; 99397

== ENCOUNTER 2024-02-14 08:05 | Outpatient (REF) | payer MEDICARE, MEDICAID, SELFPAY ==
[2024-02-14 11:29] LABS: Estimated Average Glucose 146 mg/dL; Hemoglobin A1c % 6.7 % (<6.0); Total Hemoglobin (HGBA1C) 3733.4211 umol/L
[2024-02-14 11:42] LABS: Alanine Aminotransferase 16 U/L (0-40); Albumin Level 4.1 g/dL (3.5-5.0); Alkaline Phosphatase 79 U/L (39-117); Anion Gap 11 (12-20); Aspartate Amino Transferase 20 U/L (5-37); Bilirubin Total 0.6 mg/dL (0.0-1.0); Blood Urea Nitrogen 17 mg/dL (9-16); Calcium 9.4 mg/dL (8.4-10.2); Carbon Dioxide 30 mmol/L (22-29); Chloride 103 mmol/L (96-108); Cholesterol 157 mg/dL (<200); Estimated Glomerular Filt Rate > 60; Glucose Fasting 116 mg/dL (60-99); HDL Cholesterol 49 mg/dL (>40); LDL Cholesterol Calculated 89 mg/dL (<100); Potassium 4.5 mmol/L (3.3-5.1); Sodium 139 mmol/L (135-145); Total Protein 6.9 g/dL (6.5-8.0); Triglycerides 99 mg/dL (<150)
[2024-02-14 15:26] LABS: Creatinine Urine 74.38 mg/dL; Microalbumin Urine < 5.0 mg/L
== END 2024-02-14 08:06 | disposition home or self-care (01) ==
LOC: HO.WFDLDS 08:05
PROVIDERS: Visit Provider Family Medicine
DX: Z00.00 Encounter for general adult medical examination without abnormal findings (principal); E11.9 Type 2 diabetes mellitus without complications; I25.10 Atherosclerotic heart disease of native coronary artery without angina pectoris; I10 Essential (primary) hypertension
CPT/HCPCS: 36415; 80053; 80061; 82043; 82570; 83036

== ENCOUNTER 2024-02-22 08:28 | Outpatient (AMB) | payer MEDICARE, MEDICAID, SELFPAY ==
--- NOTE | 2024-02-22 08:35 | MHC.PC.OV ---
Vital Signs 02/22/24 08:36 Height 5 ft 6 in Weight 199 lb BMI 32.1 BP 125/68 Blood Pressure Location Rt brachial Position Sitting Respiration 14 Pulse 85 Pulse Source Pulse Oximeter Temp 97.4 F Temp Source Oral Pulse Oximetry (%) 99 Oxygen Delivery Method Room Air Intake Visit Reasons: f/u diabetes, hyperlipidemia Intake Note: follow up Allergies No Known Allergies Allergy (Verified 02/22/24 08:36) Tobacco use date assessed: 11/16/23 Dental Screening Dental Screen Date: 11/16/23 HPI f/u diabetes, hyperlipidemia HPI Details 73 y/o male presents to f/u diabetes, hyperlipidemia. Blood pressure today 125/68, 85p. He is on amlodipine 10mg, lisinopril-hydrochlorothiazide 20-25mg daily. Labs drawn 02/14/24. Reviewed labs with pt. A1c 6.7%. He is on glipizide 10mg, metformin 500mg b.i.d. Triglycerides 99. TC 157. LDL 89. HDL 49. He is on artovastatin 20mg. HPI Comments History of Present Illness Details Documentation assistance for Mauro Matamoros MD, was provided by Jose Livingston,? Motion Picture Camer[employer] on 02/22/2024 at 8:51 AM EST. I, Dr. Matmaoros, have read, observed, and verified documentation. [facility] Medical History (Updated 11/16/23 @ 15:37 by Jose Livinsgton) Adult general medical exam Screening for prostate cancer Screening for colon cancer Vertigo Elevated cholesterol CAD (coronary artery disease) HTN (hypertension) Diabetes Cerumen debris on tympanic membrane Immunization counseling Wheezing Dizziness Surgical History H/O colonoscopy Social History Household Members: Family Household Members Other:: sister Housing: House 75 years or older and lives alone: No Alcohol intake: never Patient Tobacco Use Status: Never used Tobacco e-Cigarette/Vaping Use: Never Used Second Hand Smoke Exposure: No service: No Current occupational status: retired Current occupational exposures/hazards: No Cognitive needs: No Hearing needs: No Vision needs: No Questionnaire PHQ-9 Over the last 2 weeks, how often have you been bothered by any of the following problems? 1. Little interest or pleasure in doing things: not at all 2. Feeling down, depressed, or hopeless: not at all 3. Trouble falling or staying asleep, or sleeping too much: not at all 4. Feeling tired or having little energy: not at all 5. Poor appetite or overeating: not at all 6. Feeling bad about yourself - or that you are a failure or have let yourself or your family down: not at all 7. Trouble concentrating on things, such as reading the newspaper or watching television: not at all 8. Moving or speaking so slowly that other people could have noticed. Or the opposite - being so fidgety or restless that you have been moving around a lot more than usual: not at all 9. Thoughts that you would be better off or of hurting yourself in some way: not at all Total score: 0 53375 - PHQ-9 Billing: Yes Source: Developed by Drs. Rashad Dominique, Dorota Padilla, Fabian Dunham and colleagues, with an educational joslyn from [employer]. Thrive Questionnaire Date Thrive assessed: 02/22/24 I am a: Patient What is your living situation today?: I have a steady place to live Within the past 12 months, did the food you bought not last and you didn't have the money to get more?: Never true Within the past 12 months, did you worry whether your food would run out before you got money to buy more?: Never true Do you have trouble paying for medicines?: Yes Do you have trouble getting transportation to medical appointments?: No Do you have trouble paying your heating and electricity bill?: Yes Do you have trouble taking care of your child, family member or friend?: No Do you have trouble with day-to-day activities such as bathing, preparing meals, shopping, managing finances, etc.?: No Are you currently unemployed and looking for a job?: No Are you interested in more education?: No Please select the resources that you would like help with: None Currently or been in a relationship where the following occur: No concerns reported THRIVE Score: 1 AUDIT C Alcohol Use Questionnaire (AUDIT-C) 1. How often do you have a drink containing alcohol?: Never Total Score: 0 SAMANTHA-7 AMB Questionnaire SAMANTHA-7 Date SAMANTHA - 7 assessed: 02/22/24 Feeling nervous, anxious, or on edge: 0 = Not at all Not being able to stop or control worryin = Not at all Worrying too much about different things: 0 = Not at all Trouble relaxin = Not at all Being so restless that it is hard to sit still: 0 = Not at all Becoming easily annoyed or irritable: 0 = Not at all Feeling afraid as if something awful might happen: 0 = Not at all Total SAMANTHA-7 score (0-4 normal; 5-9 mild; 10-14 moderate; 15-21 severe): 0 Source: Developed by Drs. Rashad Dominique, Dorota Padilla, Fabian Dunham and colleagues, with an educational joslyn from [employer]. SAMANTHA-7 Assessment Billing SAMANTHA-7 Assessment Tool: SAMANTHA-7 Assessment 92139 Review of Systems Const Denies chills, Denies fatigue, Denies fever(s), Denies headache(s) and Denies weakness ENT Denies dizziness and Denies headache(s) Card Denies dyspnea Resp Denies cough, Denies dyspnea, Denies wheezing and Denies other (shortness of breath) Musc Denies numbness and Denies tingling Neuro Denies dizziness, Denies headache(s), Denies numbness, Denies tingling and Denies weakness Psych Denies anxiety and Denies depression Endo Denies fatigue Aller/Immun Denies wheezing Physical exam (Primary Care) Vital Signs: Last Vital Signs Temp 97.4 F 02/22/24 08:36 Pulse 85 02/22/24 08:36 Resp 14 02/22/24 08:36 BP 125/68 02/22/24 08:36 Pulse Ox 99 02/22/24 08:36 Oxygen Delivery Method Room Air 02/22/24 08:36 BMI result Body Mass Index 32.1 Tobacco/Smoking Status: Tobacco use Status Tobacco use date assessed 11/16/23 02/22/24 08:39 Patient Tobacco Use Status Never used Tobacco 02/22/24 08:39 e-Cigarette/Vaping Use Never Used 02/22/24 08:39 PHQ-9: PHQ-9 Score PHQ-9: Total score 0 02/22/24 08:49 Thrive Assessment: Date of Thrive Assessment Date Thrive assessed 02/22/24 02/22/24 08:39 Currently or been in a relationship where the following occur: No concerns reported Const General: well developed; No acute distress Nutritional Appearance: well nourished Orientation/consciousness: patient oriented x3 HENMT Head: Yes normocephalic and Yes atraumatic Eyes General: appearance normal, both eyes and all related structures Pupils: Equal, round and reactive pupils present EOM: EOMs intact bilaterally Resp Effort & Inspection: normal respiratory effort Auscultation: clear to auscultation bilaterally Cardio Rate: regular rate Rhythm: regular rhythm Heart sounds: S1 normal heart sound present, S2 normal heart sound present, no gallops, no murmurs and no rubs Neuro General: patient oriented x3 and gait normal Cranial nerves: Yes Equal, round and reactive pupils present Psych Affect: normal affect Coding Level of Care Code Est Pt Level 4 (97506) Diagnoses Diabetes type 2, controlled E11.9 Hypercholesterolemia E78.00 Essential hypertension I10 CAD in [place] artery I25.10 Additional Codes SAMANTHA-7 Assessment Billing - SAMANTHA-7 Assessment Tool: SAMANTHA-7 Assessment 81890 ([id number]) Assessment & Plan Assessment & Plan (1) Diabetes type 2, controlled: Code(s): E11.9 - Type 2 diabetes mellitus without complications Category: Medical Plan: A1c?is?improved?from?7.0%?to?6.7%.??Good?control.??Goal?is?less?than?7.0% Continue?current?medication?regimen Patient?says?he?had?recent?eye?exam?and?will?forward?us?the?report (2) Hypercholesterolemia: Code(s): E78.00 - Pure hypercholesterolemia, unspecified Category: Medical Plan: Lipids?are?well?controlled?on?atorvastatin Continue?current?medication (3) Essential hypertension: Code(s): I10 - Essential (primary) hypertension Category: Medical Plan: Blood?pressure?is?well?controlled?and?at?goal?of?less?than?130/80 Continue?current?medications (4) CAD in [place] artery: Code(s): I25.10 - Atherosclerotic heart disease of [place] coronary artery without angina pectoris Category: Medical Plan: Stable Plan Encouraged?healthy?diabetic?diet?and?exercise?and?weight?loss Orders: Orders Comprehensive [place]. Panel Fast Today Z00.00 - Encounter for general adult medical examination without abnormal findings Lipid Panel Today Z00.00 - Encounter for general adult medical examination without abnormal findings
[2024-02-22 08:36] VITALS: BP 125/68; PULSE 85; RESP 14; TEMP 36.3; O2SAT 99; BMI 32.1
== END 2024-02-22 08:55 | disposition home or self-care (01) ==
PROVIDERS: PCP Family Medicine; Visit Provider Family Medicine
DX: E11.9 Type 2 diabetes mellitus without complications (principal); E78.00 Pure hypercholesterolemia, unspecified; I10 Essential (primary) hypertension; I25.10 Atherosclerotic heart disease of native coronary artery without angina pectoris

== ENCOUNTER → 2024-02-22 08:28 | Outpatient (BNVA) | payer MEDICARE, MEDICAID, SELFPAY | PROVIDERS: PCP Family Medicine; Visit Provider Family Medicine | DX: E11.9 Type 2 diabetes mellitus without complications (principal); E78.00 Pure hypercholesterolemia, unspecified; I10 Essential (primary) hypertension; I25.10 Atherosclerotic heart disease of native coronary artery without angina pectoris | CPT/HCPCS: 96127; 99212 ==

== ENCOUNTER 2024-06-26 08:10 | Outpatient (AMB) | payer MEDICARE, MEDICAID, SELFPAY ==
--- OUTSIDE RECORDS SUMMARY | 2024-06-26 08:21 | XMS_ITS ---
Author Organization [facility] Address [address] [place] [address] Care Team Providers Care Tufting Creeler Name Role Phone Mauro Matamoros Primary Care Provider UnavailRashad Vazquez Unavailable [phone] ALLERGIES No Known Allergies REASON FOR VISIT Patient presents today for a recall colonoscopy MEDICATIONS Medication SIG (Take, Route, Frequency, Duration) Notes Start Date End Date Status metFORMIN HCl 500 MG 1 tablet with a chas l Orally Once a day for 30 day(s) Active glipiZIDE ER 5 MG 1 tablet with food O rally Once a day for 30 day(s) Active Aspir-81 81 MG 1 tablet Orally Once a day Active amLODIPine Besylate 5 MG Oral for 90 Active Lisinopril 20 MG 1 tablet Orally Once a day for 30 day(s) Active Simvastatin 20 MG 1 tablet in the even ing Orally Once a day for 30 day(s) Active Promethazine-Codeine 6.25-10 MG/5ML 5 ml as needed Orally every 6 hrs Active SOCIAL HISTORY Tobacco Use: Social History Observation Description Date Details (start date - stop date) Never Smoker NA - NA Sex Assigned At : Social History Observation Description Sex Assigned At Unknown Tobacco Use/Smoking Question Answer Notes Patient is a nonsmoker Alcohol Screen Question Answer Notes Did you have a drink containing alcohol in the p ast year? No Points 0 Interpretation Negative VITAL SIGNS Temperature 97.1 degrees Fahrenheit 03/13/20 23 Blood pressure systolic 00 mm Hg 03/13/20 23 Blood pressure diastolic 00 mm Hg 023 Height 66 in 03/13/2023 Weight 203 lbs 03/13/2023 BMI 32.76 kg/m2 03/13/2023 Encounters Encounter Location Date Provider Diagnosis [facility] [address] [place] [address] 03/13/2023 Rashad Gutierrez Encounter for screen ing for malignant neoplasm of colon Z12.11 ; Long-term use of aspirin therapy Z79.82 ; Preprocedural examination Z01.818 and Serrated adenoma of colon D12.6 ASSESSMENTS Encounter Date Diagnosis Assessment Notes Treatment Notes Treatment Clinical Notes 03/13/2023 Encounter for screening for malignant neoplasm of colon (ICD-10 - Z12.11) Stop aspirin for 1 week before the colonoscopy. Do not take the Metformin or Glipizide the night before nor on the morning of the colonoscopy 03/13/2023 Long-term use of aspirin therapy (ICD-10 - Z79.82) 03/13/2023 Preprocedural examination (ICD-10 - Z01.818) 03/13/2023 Serrated adenoma of colon (ICD-10 - D12.6) PLAN OF TREATMENT Treatment Notes Assessment Notes Encounter for screening for malignant neoplasm of colon Stop aspirin for 1 week before the colonoscopy. Do not take the Metformin or Glipizide the night before nor on the morning of the colonoscopy Future Test Test Name Order Date COLONOSCOPY 03/13/2023 Next Appt Details Follow Up: prn, Reason: Progress Notes * Examination Category Sub-Category Detail Notes General Examination GENERAL APPEARANCE: pleasant , well nourished, well developed, in no acute distress HEAD: EYES: sclera non-icteric EARS: NOSE: THROAT: NECK/THYROID: no cervical lymphade nopathy, neck supple HEART: S1, S2 normal CHEST: LUNGS: clear to auscultatio n bilaterally ABDOMEN: normal bowel sounds, no guarding or rigidity, no guarding or rigidity, no masses palpable, soft, nontender, nondistended NEUROLOGIC: alert and oriented SKIN: nonjaundiced, no spi vianey angiomata EXTREMITIES: no edema PERIPHERAL PULSES: BACK: BREASTS: MUSCULOSKELETAL: MALE GENITOURINARY: LYMPH NODES: RECTAL EXAM: FEMALE GENITOURINARY: ORAL CAVITY: mucosa moist
--- OUTSIDE RECORDS SUMMARY | 2024-06-26 08:21 | XMS_ITS ---
Author Organization [facility] Address [address] [place] [address] Care Team Providers Care Compensation Director Name Role Phone Mauro Matamoros Primary Care Provider Unavailab Rashad Page Unavailable [phone] REASON FOR VISIT screening,serrated adenoma of colon PROBLEMS Problem Type ICD Code Onset Dates Problem Status W/U Status Risk SNOMED Code Notes Problem Diverticulosis of large intestine without perforation or abscess without bleeding (K57.30) Active confirmed Diverticul ar disease of colon (706108049) Encounters Encounter Location Date Provider Diagnosis [facility] Outpatient [address] [place], [place] [id number] 07/20/2023 Rashad Gutierrez Encounter for scre ening colonoscopy Z12.11 ; Colon polyps K63.5 ; Diverticulosis of large intestine without perforation or abscess without bleeding K57.30 and Other hemorrhoids K64.8 ASSESSMENTS Encounter Date Diagnosis Assessment Notes Treatment Notes Treatment Clinical Notes 07/20/2023 Encounter for screening colonoscopy (ICD-10 - Z12.11) 07/20/2023 Colon polyps (ICD-10 - K63.5) 07/20/2023 Diverticulosis of large intestine without perforation or abscess without bleeding (ICD-10 - K57.30) 07/20/2023 Other hemorrhoids (ICD-10 - K64.8) PLAN OF TREATMENT No Information
--- OUTSIDE RECORDS SUMMARY | 2024-06-26 08:22 | XMS_ITS | Clinical Summary ---
Author Organization [employer] Address [address] [facility] [address] [place] [address] Care Team Providers Care School Counselor Name Role Phone Unavailable Primary Care Provider Unavailabl e Allergies No known active allergies Medications No known medications Active Problems No known active problems Social History Tobacco Use Types Packs/Day Years Used Date Smoking Tobacco: Never Assessed Sex and Gender Information Value Date Recorded Sex Assigned at Male 12/21/2023 8:56 AM EDT Legal Sex Male 8:51 AM EDT Gender Identity Male 12/21/2023 8:56 AM EDT Sexual Orientation Straight 12/21/2023 8: 56 AM EDT Last Filed Vital Signs Vital Sign Reading Time Taken Comments Blood Pressure 128/72 12/21/2023 11:45 AM EDT Pulse - - Temperature - - Respiratory Rate - - Oxygen Saturation - - Inhaled Oxygen Concentration - - Weight - - Height - - Body Mass Index - - Plan of Treatment Health Maintenance Due Date Last Done Comments CT Colonography 1950 Colonoscopy 1950 Colorectal Cancer Screening 1950 Dental Oral Exam 1950 Dental Prophylaxis 1950 Dental X-Ray: Bitewings 1950 Dental X-Ray: Full Mouth 1950 Depression Screening 1950 FIT DNA/Cologuard 1950 FIT 1950 FOBT 1950 Lipid Panel 1950 SDOH Screening 1950 Sigmoidoscopy 1950 Alcohol/Substance Use Screening 1962 Tobacco Screening 1962 Hepatitis C Screening 1968 Pneumococcal Vaccine: 50+ Years (2 of 2 - PCV) 04/30/2018 04/30/2017, 04/06/2014 DTaP/Tdap/Td Vaccines (1 - Tdap) 10/04/2018 10/03/2018 COVID-19 Vaccine ( season) 2023 03/12/2023, 03/07/2021, 08/04/2020, Additional history exists Influenza Vaccine (#1) 2023 , 02/19/2022, 01/13/2021, Additional history exists RSV Patients and Patients Aged 60 years or older (1 - 1-dose 75+ series) 2025 Zoster Vaccines Completed 10/22/2018, 06/29, 02/18/2012 HIB Vaccines Aged Out No longer eligi ble based on patient's age to complete this topic HPV Vaccines Aged Out No longer eligi ble based on patient's age to complete this topic Hepatitis A Vaccines Aged Out No long er eligible based on patient's age to complete this topic Hepatitis B Vaccines Aged Out No long er eligible based on patient's age to complete this topic IPV Vaccines Aged Out No longer eligi ble based on patient's age to complete this topic Meningococcal Vaccine Aged Out No kathi eric eligible based on patient's age to complete this topic RSV under 20 months Aged Out No longe r eligible based on patient's age to complete this topic Rotavirus Vaccines Aged Out No longer eligible based on patient's age to complete this topic Insurance [place]
--- OUTSIDE RECORDS SUMMARY | 2024-06-26 08:22 | XMS_ITS | Patient Health Record ---
Author Organization [facility] Address [address] [place] [address] Care Team Providers Care Restaurant Supervisor Name Role Phone Mauro Matamoros Primary Care Provider UnavailRashad Vazquez Unavailable [phone] ALLERGIES No Known Allergies RESULTS Component Value Reference Range Notes Pathology (Not yet reviewed by provider) Interpretation: Performing Lab:[facility], [address] [place] [phone] Notes/Report: Glucose, Whole Blood Reviewed date:07/20/2023 01:11:28 PM Interpretation: Performing Lab:[facility], [address] [place] [phone] Notes/Report: Glucose, Whole Blood 116 60-115 mg/dL METER # : [id number] REASON FOR REFERRAL No Information MEDICATIONS Medication SIG (Take, Route, Frequency, Duration) [...] as needed Orally every 6 hrs Active Aspir-81 81 MG 1 tablet Orally Once a day Active amLODIPine Besylate 5 MG Oral for 90 Active Lisinopril 20 MG 1 tablet Orally Once a day for 30 day(s) Active IMMUNIZATIONS Vaccine Route Administration Date Status Comme nts Influenza Unknown 02/06/2018 Administered Influenza Unknown 12/29/2018 Administered SOCIAL HISTORY Tobacco Use: Social History Observation Description Date Details (start date - stop date) Never Smoker NA - NA Sex Assigned At : Social History Observation Description Sex Assigned At Unknown Tobacco Use/Smoking Question Answer Notes Patient is a nonsmoker Alcohol Screen Question Answer Notes Did you have a drink containing alcohol in the p ast year? No Points 0 Interpretation Negative PROBLEMS Problem Type ICD Code Onset Dates Problem Status W/U Status Risk SNOMED Code Notes Problem Encounter for screening for malignant neoplasm of colon (Z12.11) Active confirmed 139677703 Problem Diverticulosis of large intestine without perforation or abscess without bleeding (K57.30) Active confirmed Diverticul ar disease of colon (287247742) Problem Preprocedural examination (Z01.818) Active confirmed [id number] Problem Long-term use of aspirin therapy (Z79.82) Active confirmed 502783233 Problem Serrated adenoma of colon (D12.6) Active confirmed 838285030 Encounters Encounter Location Date Provider Diagnosis [facility] [place] [address] [place] [id number] 07/20/2023 Rashad Gutierrez Encounter for scre ening [...] hemorrhoids (ICD-10 - K64.8) PLAN OF TREATMENT Pending Test Test Name Order Date Pathology 07/20/2023 Future Test Test Name Order Date COLONOSCOPY 08/20/2018 COLONOSCOPY 07/15/2019 COLONOSCOPY 03/13/2023 Insurance Providers Payer Name Payer Address Payer Phone Subscriber Number Group Number Insured Name Patient Relationship to Insured Coverage Start Date Coverage End Date MEDICARE OF [place] [address] [place] [phone] [id number] PATI REED Self - patient is the insured MEDICAID OF [facility] [address] [place] [address] [phone] [id number] PATI REED Self - patient is the insured MEDICAL (GENERAL) HISTORY Medical History History ICD Code Denies GA,CVA,Lung disease,renal disease NIDDM Hypertension Hyperlipidemia Screening colonoscopy 06/2018 - >15mm flat serrated adenoma removed from the proximal ascending colon Negative colonosocpy in 09/2019 except fo r a hyperplastic polyp Surgical History Surgery Date(Month/Year)
--- NOTE | 2024-06-26 08:34 | A.OFFPC_ITS ---
Vital Signs 06/26/24 08:42 Height 5 ft 6 in Weight 204 lb 8 oz BMI 33.0 BP 130/60 Blood Pressure Location Rt brachial Position Sitting Respiration 14 Pulse 87 Pulse Source Pulse Oximeter Temp 97.5 F Temp Source Oral Pulse Oximetry (%) 95 Oxygen Delivery Method Room Air Intake Visit Reasons: f/u diabetes, hypertension Intake Note: f/u HTN &DM Records Management Associate Required: No Allergies No Known Allergies Allergy (Verified 06/26/24 08:34) Medication List - Last Reconciled 06/26/24 by Mauro Mataomros MD amlodipine 10 mg (2 x 5 mg) PO DAILY 90 days aspirin (Adult Low Dose Aspirin) 81 mg PO DAILY atorvastatin 20 mg PO BEDTIME 90 days blood sugar diagnostic (FreeStyle Lite Strips) DX: E11.9, test blood sugar twice a day, 90 days blood-glucose meter (FreeStyle [place] Lite kit) test blood sugar twice a day As directed glipizide ER 10 mg PO DAILY 90 days lancets (FreeStyle Lancets) Test blood sugar twice a day lisinopril-hydrochlorothiazide 20-25 mg 1 tab PO DAILY metformin 500 mg PO BID 90 days Tobacco use date assessed: 11/16/23 Dental Screening Dental Screen Date: 11/16/23 HPI f/u diabetes, hypertension HPI Details 74 y/o male presents to f/u diabetes, hy pertension. Last A1c 02/14/24 6.7%. A1c today 06/26/24 6.6%. He is on glipizide 10mg, metformin 500mg b.i.d. Blood pressure today 130/60, 87p. He is on lisinopril-HCTZ 20-25mg daily. Has complaints of a bump on top of R ear. HPI Comments History of Present Illness Details Documentation assistance for Mauro Matamoros MD, was provided by Jose Livingston,? Medical Assistant Dermatology on 06/26/2024 at 8:50 AM BILL. I, Dr. Matamoros, have read, observed, and verified documentation. ?? [facility] Medical History (Updated 06/26/24 @ 08:51 by Jose Livingston) Adult general medical exam Screening for prostate cancer Screening for colon cancer Vertigo Elevated cholesterol CAD (coronary artery disease) HTN (hypertension) Diabetes Cerumen debris on tympanic membrane Immunization counseling Wheezing Dizziness Surgical History H/O colonoscopy Social History Household Members: Family Household Members Other:: sister Housing: House 75 years or older and lives alone: No Alcohol intake: never Patient Tobacco Use Status: Never used Tobacco e-Cigarette/Vaping Use: Never Used Second Hand Smoke Exposure: No service: No Current occupational status: retired Current occupational exposures/hazards: No Cognitive needs: No Hearing needs: No Vision needs: No Questionnaire Thrive Questionnaire Date Thrive assessed: 02/22/24 SAMANTHA-7 AMB Questionnaire SAMANTHA-7 Date SAMANTHA - 7 assessed: 02/22/24 Source: Developed by Drs. Rashad Dominique, Dorota Padilla, Fabian Dunham and colleagues, with an educational joslyn from [employer]. Review of Systems Const Denies chills, Denies fatigue, Denies fever(s), Denies headache(s) and Denies weakness ENT Denies dizziness and Denies headache(s) Card Denies dyspnea Resp Denies cough, Denies dyspnea, Denies wheezing and Denies other (shortness of yaneth ath) Musc Denies numbness and Denies tingling Neuro Denies dizziness, Denies headache(s), Denies numbness, Denies tingling and Denies weakness Psych Denies anxiety and Denies depression Endo Denies fatigue Aller/Immun Denies wheezing Physical exam (Primary Care) Vital Signs: Last Vital Signs Temp 97.5 F 06/26/24 08:42 Pulse 87 06/26/24 08:42 Resp 14 06/26/24 08:42 BP 130/60 06/26/24 08:42 Pulse Ox 95 06/26/24 08:42 Oxygen Delivery Method Room Air 06/26/24 08:42 BMI result Body Mass Index 33.0 Tobacco/Smoking Status: Tobacco use Status Tobacco use date assessed 11/16/23 06/26/24 08:35 Patient Tobacco Use Status Never used Tobacco 06/26/24 08:35 e-Cigarette/Vaping Use Never Used 06/26/24 08:35 Thrive Assessment: Date of Thrive Assessment Date Thrive assessed 02/22/24 06/26/24 08:35 Const General: well developed; No acute distress Nutritional Appearance: well nourished Orientation/consciousness: patient oriented x3 HENMT Head: Yes normocephalic and Yes atraumatic Eyes General: appearance normal, both eyes and all related structures Pupils: Equal, round and reactive pupils present EOM: EOMs intact bilaterally Resp Effort & Inspection: normal respiratory effort Auscultation: clear to auscultation bilaterally Cardio Rate: regular rate Rhythm: regular rhythm Heart sounds: S1 normal heart sound present, S2 normal heart sound present, no gallops, no murmurs and no rubs Neuro General: patient oriented x3 and gait normal Cranial nerves: Yes Equal, round and reactive pupils present Psych Affect: normal affect Results AMB Hemoglobin A1c AMB Hemoglobin A1c 6.6 % Last Edit by Bhupinder Madera CMA on 06/26/24 08:49 Results Reviewed Results Reviewed: Laboratory Last Values Hgb A1c (Clinic) 6.6 % (4.0-6.0) H 06/26/24 08:46 Coding Level of Care Code Est Pt Level 4 (18583) Diagnoses Diabetes type 2, controlled E11.9 Essential hypertension I10 Neoplasm of uncertain behavior of skin D48.5 Assessment & Plan Assessment & Plan (1) Diabetes type 2, controlled: Code(s): E11.9 - Type 2 diabetes mellitus without complications Category: Medical Plan: A1c?6.6%.??Good?control.??Goal?is?less?than?7.0% Continue?current?medications Patient?had?eye?exam?in?January.??Up-to-date (2) Essential hypertension: Code(s): I10 - Essential (primary) hypertension Category: Medical Plan: Blood?pressure?is?fairly?well?controlled.??Goal?is?less?than?130/80 Continue?current?medications (3) Neoplasm of uncertain behavior of skin: Code(s): D48.5 - Neoplasm of uncertain behavior of skin Category: Medical Plan: Approximately?0.75 cm lesion?at?top?right?ear Will?refer?to?Dermatology Orders: Orders 2 AMB Hemoglobin A1c Today E11.9 - Type 2 diabetes mellitus without complications Referrals Dermatology Referral D48.5 - Neoplasm of uncertain behavior of skin
[2024-06-26 08:42] VITALS: BP 130/60; PULSE 87; RESP 14; TEMP 36.4; O2SAT 95; BMI 33.0
== END 2024-06-26 08:57 | disposition home or self-care (01) ==
LOC: HO.HMCFM 08:10
PROVIDERS: PCP Family Medicine; Visit Provider Family Medicine
DX: E11.9 Type 2 diabetes mellitus without complications (principal); I10 Essential (primary) hypertension; D48.5 Neoplasm of uncertain behavior of skin

== ENCOUNTER → 2024-06-26 08:10 | Outpatient (BNVA) | payer MEDICARE, MEDICAID, SELFPAY | PROVIDERS: PCP Family Medicine; Visit Provider Family Medicine | DX: E11.9 Type 2 diabetes mellitus without complications (principal); D48.5 Neoplasm of uncertain behavior of skin; I10 Essential (primary) hypertension | CPT/HCPCS: 83036; 99212 ==

== ENCOUNTER 2024-07-23 10:57 | Outpatient (AMB) | payer MEDICARE, MEDICAID, SELFPAY ==
--- NOTE | 2024-07-23 11:11 | MHC.OFFWIV ---
Intake Vital Signs 07/23/24 11:14 Height 5 ft 6 in Weight 203 lb 4 oz BMI 32.8 BP 112/68 Blood Pressure Location Lt brachial Position Sitting Respiration 12 Pulse 97 Pulse Source Pulse Oximeter Temp 97.2 F Temp Source Oral Pulse Oximetry (%) 97 Oxygen Delivery Method Room Air Intake Visit Reasons: coughing Intake Note: Patient c/o coughing, and runny nose x 1 week Patient Tobacco Use Status: Never used Tobacco Allergies No Known Allergies Allergy (Verified 07/23/24 11:34) Medication List - Last Reconciled 07/23/24 by Shaunna Christensen, DEPUTY CHIEF SHERIFF- amlodipine 10 mg (2 x 5 mg) PO DAILY 90 days aspirin (Adult Low Dose Aspirin) 81 mg PO DAILY atorvastatin 20 mg PO BEDTIME 90 days blood sugar diagnostic (FreeStyle Lite Strips) DX: E11.9, test blood sugar twice a day, 90 days blood-glucose meter (FreeStyle [place] Lite kit) test blood sugar twice a day As directed glipizide ER 10 mg PO DAILY 90 days lancets (FreeStyle Lancets) Test blood sugar twice a day lisinopril-hydrochlorothiazide 20-25 mg 1 tab PO DAILY metformin 500 mg PO BID 90 days Do you need a note to return to daycare/school/sports/work: No HPI HPI Comments History of Present Illness Details History - The patient is a 74-year-old male presenting with cough and runny nose. - He describes a cold with green sputum production for the past week without fever or ear pain. - Runny nose is present, but it is not associated with itchiness. - The patient denies having a sore throat. - He attempted self-medication a week ago without success. - Flu vaccination was received this year. - History includes coughing green sputum, predominantly at night, causing episodes of choking. - Reports gets sick every June; does well with cough syrup + codeine He has HTN and it is well controlled. Has regular FU with PCP Physical Exam General: Awake, alert. No apparent distress Eyes: Sclera and conjunctiva clear bilaterally Nose: Nares patent, turbinates within normal limits, no sinus tenderness with palpation bilaterally Ears: Tympanic membranes intact and clear bilaterally Throat: Moist mucosa membrane, pharynx within normal limits Cardiovascular: Regular rate and rhythm Respiratory: Faint exp wheeze throughout, no distress Discussion Notes I discussed with the patient the likely diagnosis of an acute viral upper respiratory infection. I explained the treatment plan, which includes prescribing cough syrup and cough pills to help alleviate symptoms. Additionally, I offered an inhaler for use if necessary, although it is not mandatory if not desired. I instructed the patient to use the cough syrup at night and the cough pills during the day. I informed the patient that if symptoms do not improve with the current management, he should return for further evaluation. The prescription and management plan was sent for pharmacy pickup. Follow-up and return precautions were discussed. Assessment and Plan 1. Acute Viral Upper Respiratory Infection: The symptoms presented align with an acute viral upper respiratory infection. I prescribed cough syrup for nighttime use and cough pills for daytime symptom relief. Additionally, an inhaler was provided for use if wheezing persists. The patient has been advised to return if symptoms do not improve. 2. Wheezing: Wheezing was assessed, and an inhaler was offered to alleviate this symptom. The patient has the option to use the inhaler based on symptom severity. HTN: cont meds and fu with PCP Patient Instructions - Take cough syrup at night to help alleviate cough symptoms. - Use cough pills during the day as needed. - An inhaler is available for wheezing; use it if necessary for relief. 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 - Return for assessment if symptoms do not improve or worsen. Consent Patient was informed and verbally consented to the use of an ambient scribe for clinic note documentation during this visit. [facility] Medical History (Updated 06/26/24 @ 08:51 by Jose Livingston) Adult general medical exam CAD (coronary artery disease) Cerumen debris on tympanic membrane Diabetes Dizziness Elevated cholesterol HTN (hypertension) Immunization counseling Screening for colon cancer Screening for prostate cancer Vertigo Wheezing Surgical History H/O colonoscopy Social History Household Members: Family Household Members Other:: sister Housing: House 75 years or older and lives alone: No Alcohol intake: never Patient Tobacco Use Status: Never used Tobacco e-Cigarette/Vaping Use: Never Used Second Hand Smoke Exposure: No service: No Current occupational status: retired Current occupational exposures/hazards: No Cognitive needs: No Hearing needs: No Vision needs: No Physical Exam Vital Signs: Last Vital Signs Temp 97.2 F 07/23/24 11:14 Pulse 97 07/23/24 11:14 Resp 12 07/23/24 11:14 BP 112/68 07/23/24 11:14 Pulse Ox 97 07/23/24 11:14 Oxygen Delivery Method Simple Mask 07/23/24 11:14 BMI result Body Mass Index 32.8 Assessment & Plan Assessment & Plan (1) Viral URI with cough: Code(s): J06.9 - Acute upper respiratory infection, unspecified (2) Essential hypertension: Code(s): I10 - Essential (primary) hypertension Plan . Medications: New benzonatate 100 mg PO TID 10 days PRN 30 caps 1RF cough albuterol sulfate 90 mcg/actuation 2 puffs inhalation Q4-6H 30 days PRN 8.5 grams 0RF shortness of breath or wheezing codeine-guaifenesin 10-100 mg/5 mL 10 mL PO ONCE 7 days PRN 70 mL 0RF cough Patient Instructions: Patient Instructions - Take cough syrup at night to help alleviate cough symptoms. - Use cough pills during the day as needed. - An inhaler is available for wheezing; use it if necessary for relief. 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 - Return for assessment if symptoms do not improve or worsen. Coding Level of Care Code Est Pt Level 4 (02963) Diagnoses Viral URI with cough J06.9 Essential hypertension I10
[2024-07-23 11:14] VITALS: BP 112/68; PULSE 97; RESP 12; TEMP 36.2; O2SAT 97; BMI 32.8
--- OUTSIDE RECORDS SUMMARY | 2024-07-23 13:05 | XMS_ITS | Clinical Summary ---
Author Organization [employer] Address [address] [facility] [address] [place] [address] Care Team Providers Care Media/Instructional Designer Name Role Phone Unavailable Primary Care Provider [...]
== END 2024-07-23 11:47 | disposition home or self-care (01) ==
PROVIDERS: PCP Family Medicine; Visit Provider Nurse Practitioner Family
DX: J06.9 Acute upper respiratory infection, unspecified (principal); I10 Essential (primary) hypertension

== ENCOUNTER → 2024-07-23 10:57 | Outpatient (BNVA) | payer MEDICARE, MEDICAID, SELFPAY | PROVIDERS: PCP Family Medicine | DX: J06.9 Acute upper respiratory infection, unspecified (principal); I10 Essential (primary) hypertension | CPT/HCPCS: 99212 ==

== ENCOUNTER 2024-09-25 08:32 | Outpatient (AMB) | payer MEDICARE, MEDICAID, SELFPAY ==
--- OUTSIDE RECORDS SUMMARY | 2024-09-25 08:41 | XMS_ITS ---
Author Organization [facility] Address [address] [place] [address] Care Team Providers Care Senior Sql Dba Name Role Phone Mauro Matamoros Primary Care Provider Unavailab Rashad Page Unavailable [phone] REASON FOR VISIT screening,serrated adenoma of colon Problems Problem Type SNOMED Code ICD Code Onset Dates Problem Status W/U Status Risk Notes Problem Diverticular disease of colon (683910553) Diverticulosis of large intestine without perforation or abscess without bleeding (K57.30) Active confirmed Encounters Encounter Location Date Provider Diagnosis [facility] [place] [address] [place], [place] [phone] 07/20/2023 Rashad Gutierrez Encounter for scre ening [...] * PATI REEDDOB: 0 (74 yo M)Acc No.[id number]:07/20/2023 COLON WITH MAC Patient:?PATI REED Provider:?Rashad Gutierrez MD :1950???Age:73 Y???Sex:Male Wei e:07/20/2023 Address:[address] [id number] Pcp:Mauro Matamoros Subjective: * Chief Complaints: * ???1. Screening,serrated jase noma of colon. * Medical History:? Objective: * Vitals:? Assessment: * Assessment: 1.?Encounter for screening c olonoscopy - Z12.11 (Primary)???2.?Colon polyps - K63.5???3.?Diverticulosis of large intestine without perforation or abscess without bleeding - K57.30???4.?Other hemorrhoids - K64.8??? Plan: * Treatment: * Procedure Codes:?18103 LESIO N REMOVAL COLONOSCOPY, Modifiers: PT , 0529F INTRVL 3+YRS PTS CLNSCP DOCD, 0528F RCMND FLW-UP 10 YRS DOCD, Modifiers: 1P * * The named appointment provid er may or may not be the originator of this progress note, and it is not deemed complete until electronically signed by the appointment provider. Sign off status: Pending * Provider:?Rashad Gutierrez MD Date:? 024 Generated for Gerardo king/Sil/Julianitting on:?09/25/2024 08:41 AM EDT
--- NOTE | 2024-09-25 08:48 | A.OFFPC_ITS ---
Vital Signs 09/25/24 09:02 Height 5 ft 6 in Weight 203 lb 6 oz BMI 32.8 BP 120/70 Blood Pressure Location Rt brachial Position Sitting Respiration 16 Pulse 82 Pulse Source Pulse Oximeter Temp 97.6 F Temp Source Oral Pulse Oximetry (%) 96 Oxygen Delivery Method Room Air Intake Visit Reasons: f/u DM, HTN Intake Note: patient is scheduled to follow up for dm and htn Cut To Length Operator Required: No Allergies No Known Allergies Allergy (Verified 09/25/24 09:00) Tobacco use date assessed: 11/16/23 Fall risk assessment: No Falls in past year Last assessed Fall Risk: 09/25/24 Dental Screening Dental Screen Date: 11/16/23 HPI f/u DM, HTN HPI Details 74 y/o male presents to f/u diabetes, HT N. Blood pressure today 120/70, 82p. He is on amlodipine 10mg, lisinopril-HCTZ 20-25mg daily. Prior A1c 06/26/24 6.6%. A1c today 7.3%. Pt continues to exercise. Has complaints of allergies. HPI Comments History of Present Illness Details Documentation assistance for Mauro Matamoros MD, was provided by Jose Livingston,? Dynamite Packing Machine Operator on 09/25/2024 at 9:32 AM EST. I, Dr. Matamoros, have read, observed, and verified documentation. [facility] Medical History (Updated 09/25/24 @ 09:44 by Jose Livingston) Adult general medical exam Screening for prostate cancer Screening for colon cancer Vertigo Elevated cholesterol CAD (coronary artery disease) HTN (hypertension) Diabetes Cerumen debris on tympanic membrane Immunization counseling Wheezing Dizziness Surgical History H/O colonoscopy Social History Household Members: Family Household Members Other:: sister Housing: House 75 years or older and lives alone: No Alcohol intake: never Patient Tobacco Use Status: Never used Tobacco e-Cigarette/Vaping Use: Never Used Second Hand Smoke Exposure: No service: No Current occupational status: retired Current occupational exposures/hazards: No Cognitive needs: No Hearing needs: No Vision needs: No Questionnaire PHQ-9 Over the last 2 weeks, how often have you been bothered by any of the following problems? 1. Little interest or pleasure in doing things: not at all 2. Feeling down, depressed, or hopeless: not at all 3. Trouble falling or staying asleep, or sleeping too much: not at all 4. Feeling tired or having little energy: not at all 5. Poor appetite or overeating: not at all 6. Feeling bad about yourself - or that you are a failure or have let yourself or your family down: not at all 7. Trouble concentrating on things, such as reading the newspaper or watching television: not at all 8. Moving or speaking so slowly that other people could have noticed. Or the opposite - being so fidgety or restless that you have been moving around a lot more than usual: not at all 9. Thoughts that you would be better off or of hurting yourself in some way: not at all Total score: 0 Depression Screening Interpretation: Negative Depression Screening Done: Yes 72220 - PHQ-9 Billing: Yes Source: Developed by Drs. Rashad Dominique, Dorota Padilla, Fabian Dunham and colleagues, with an educational joslyn from [employer]. Thrive Questionnaire Date Thrive assessed: 02/22/24 I am a: Patient What is your living situation today?: I have a steady place to live Within the past 12 months, did the food you bought not last and you didn't have the money to get more?: Never true Within the past 12 months, did you worry whether your food would run out before you got money to buy more?: Never true Do you have trouble paying for medicines?: No Do you have trouble getting transportation to medical appointments?: No Do you have trouble paying your heating and electricity bill?: No Do you have trouble taking care of your child, family member or friend?: No Do you have trouble with day-to-day activities such as bathing, preparing meals, shopping, managing finances, etc.?: No Are you currently unemployed and looking for a job?: No Are you interested in more education?: No Please select the resources that you would like help with: None Currently or been in a relationship where the following occur: No concerns reported THRIVE Score: 0 AUDIT C Alcohol Use Questionnaire (AUDIT-C) 1. How often do you have a drink containing alcohol?: Never Total Score: 0 SAMANTHA-7 AMB Questionnaire SAMANTHA-7 Date SAMANTHA - 7 assessed: 09/25/24 Feeling nervous, anxious, or on edge: 0 = Not at all Not being able to stop or control worryin = Not at all Worrying too much about different things: 0 = Not at all Trouble relaxin = Not at all Being so restless that it is hard to sit still: 0 = Not at all Becoming easily annoyed or irritable: 0 = Not at all Feeling afraid as if something awful might happen: 0 = Not at all Total SAMANTHA-7 score (0-4 normal; 5-9 mild; 10-14 moderate; 15-21 severe): 0 Source: Developed by Drs. Rashad Dominique, Dorota Padilla, Fabian Dunham and colleagues, with an educational joslyn from [employer]. Review of Systems Const Denies chills, Denies fatigue, Denies fever(s), Denies headache(s) and Denies weakness ENT Denies dizziness and Denies headache(s) Card Denies dyspnea Resp Denies cough, Denies dyspnea, Denies wheezing and Denies other (shortness of breath) Musc Denies numbness and Denies tingling Neuro Denies dizziness, Denies headache(s), Denies numbness, Denies tingling and Denies weakness Psych Denies anxiety and Denies depression Endo Denies fatigue Aller/Immun Denies wheezing Physical exam (Primary Care) Vital Signs: Last Vital Signs Temp 97.6 F 09/25/24 09:02 Pulse 82 09/25/24 09:02 Resp 16 09/25/24 09:02 BP 120/70 09/25/24 09:02 Pulse Ox 96 09/25/24 09:02 Oxygen Delivery Method Room Air 09/25/24 09:02 BMI result Body Mass Index 32.8 Tobacco/Smoking Status: Tobacco use Status Tobacco use date assessed 11/16/23 09/25/24 08:50 Patient Tobacco Use Status Never used Tobacco 09/25/24 08:50 e-Cigarette/Vaping Use Never Used 09/25/24 08:50 PHQ-9: PHQ-9 Score PHQ-9: Total score 0 09/25/24 09:30 Depression Screening Interpretation: Negative Thrive Assessment: Date of Thrive Assessment Date Thrive assessed 02/22/24 09/25/24 08:50 Currently or been in a relationship where the following occur: No concerns reported Const General: well developed; No acute distress Nutritional Appearance: well nourished Orientation/consciousness: patient oriented x3 HENMT Head: Yes normocephalic and Yes atraumatic Eyes General: appearance normal, both eyes and all related structures Pupils: Equal, round and reactive pupils present EOM: EOMs intact bilaterally Resp Effort & Inspection: normal respiratory effort Neuro General: patient oriented x3 and gait normal Cranial nerves: Yes Equal, round and reactive pupils present Psych Affect: normal affect Coding Level of Care Code Est Pt Level 4 (58503) Diagnoses Diabetes type 2, controlled E11.9 Essential hypertension I10 Seasonal allergies J30.2 Additional Codes PHQ-9 - 99848 - PHQ-9 Billing: Yes ([id number]) Assessment & Plan Assessment & Plan (1) Diabetes type 2, controlled: Code(s): E11.9 - Type 2 diabetes mellitus without complications Category: Medical Plan: A1c?has?risen?and?is?7.3%.??Suboptimal?control.??Goal?is?less?than?7.0% He?will?work?on?a?better?diabetic?diet?and?some?weight?loss. We?discussed?that?if?A1c?is?still?above?7?at?his?next?visit?we?will?increase?his ?evening?dose?of?metformin. (2) Essential hypertension: Code(s): I10 - Essential (primary) hypertension Category: Medical Plan: Blood?pressure?is?well?controlled.??Goal?is?less?than?140/90 Continue?current?medication?regimen (3) Seasonal allergies: Code(s): J30.2 - Other seasonal allergic rhinitis Plan Advised?Claritin?or?Zyrtec?OTC Orders: Orders AMB Hemoglobin A1c Today E11.9 - Type 2 diabetes mellitus without complications
[2024-09-25 09:02] VITALS: BP 120/70; PULSE 82; RESP 16; TEMP 36.4; O2SAT 96; BMI 32.8
== END 2024-09-25 09:49 | disposition home or self-care (01) ==
LOC: HO.HMCFM 08:33
PROVIDERS: PCP Family Medicine; Visit Provider Family Medicine
DX: E11.9 Type 2 diabetes mellitus without complications (principal); I10 Essential (primary) hypertension; J30.2 Other seasonal allergic rhinitis

== ENCOUNTER → 2024-09-25 08:32 | Outpatient (BNVA) | payer MEDICARE, MEDICAID, SELFPAY | PROVIDERS: PCP Family Medicine; Visit Provider Family Medicine | DX: E11.9 Type 2 diabetes mellitus without complications (principal); I10 Essential (primary) hypertension; J30.2 Other seasonal allergic rhinitis | CPT/HCPCS: 83036; 96127; 99212 ==

== ENCOUNTER 2025-01-06 08:18 | Outpatient (REF) | payer MEDICARE, MEDICAID, SELFPAY ==
--- OUTSIDE RECORDS SUMMARY | 2023-07-20 03:30 | XMS_ITS ---
Author Organization [facility] Address [address] [place] [address] Care Team Providers Care Database Administration Project Manager Name Role Phone Mauro Matamoros Primary Care Provider Unavailab Rashad Page Unavailable [phone] REASON FOR VISIT screening,serrated adenoma of colon Problems Problem Type SNOMED Code ICD Code Onset Dates Problem Status W/U Status Risk Notes Problem Diverticular disease of colon (914912792) Diverticulosis of large intestine without perforation or abscess without bleeding (K57.30) Active confirmed Encounters Encounter Location Date Provider Diagnosis [facility] [address], [place] [id number] 07/20/2023 Rashad Gutierrez Encounter for scre ening colonoscopy Z12.11 ; Colon polyps K63.5 ; Diverticulosis of large intestine without perforation or abscess without bleeding K57.30 and Other hemorrhoids K64.8 Assessments Encounter Date Diagnosis (ICD Code) Assessment Notes Treatment Notes Treatment Clinical Notes Section Notes 07/20/2023 Encounter for screening colonoscopy (ICD-10 - Z12.11) 07/20/2023 Colon polyps (ICD-10 - K63.5) 07/20/2023 Diverticulosis of large intestine without perforation or abscess without bleeding (ICD-10 - K57.30) 07/20/2023 Other hemorrhoids (ICD-10 - K64.8) Plan Of Treatment No Information Progress Notes * PATI REEDDOB: 0 (74 yo M)Acc No.[id number]:07/20/2023 COLON WITH MAC Patient: PATI MORAN Provider: Lynda Gutierrez MD :1950 A ge:73 Y S ex:Male Date:07/20/2023 Address: [facility] [place], [id number] Pcp:Mauro Matamoros Subjective: * Chief Complaints: * 1 . Screening,serrated adenoma of colon. * Medical History: Objective: * Vitals: Assessment: * Assessment: 1. E ncounter for screening colonoscopy - Z12.11 (Primary) 2 . C olon polyps - K63.5 3 . D iverticulosis of large intestine without perforation or abscess without bleeding - K57.30 4 . O ther hemorrhoids - K64.8 Plan: * Treatment: * Procedure Codes: 4 5385 LESION REMOVAL COLONOSCOPY, Modifiers: PT , 0529F INTRVL 3+YRS PTS CLNSCP DOCD, 0528F RCMND FLW-UP 10 YRS DOCD, Modifiers: 1P * * The named appointment provid er may or may not be the originator of this progress note, and it is not deemed complete until electronically signed by the appointment provider. Sign off status: Pending * Provider: Lynda Gutierrez MD Date: 0 07/20/2023 Generated for Gerardo king/Sil/Julianitting on: 0 01/06/2025 09:58 AM EDT
--- OUTSIDE RECORDS SUMMARY | 2025-01-06 09:58 | XMS_ITS | Patient Health Record ---
Author Organization [facility] Address [address] [place] [address] Care Team Providers Care Transmitter Engineer Name Role Phone Jennifer Mcknight Primary Care Provider Sim Payne Unavailable [phone] Allergies Allergen (clinical drug ingredient) Drug/Non Drug Allergy documented on EMR Reaction Allergy Type Onset Date Status N.K.D.A (uncoded) Unknown Allergy Ac tive Reason For Referral No Information Medications Medication SIG (Take, Route, Fr equency, Duration) Notes Start Date End Date Status metFORMIN HCl 500 mg 1 tablet with a chas l Orally Once a day 09/17/2018 Active glipiZIDE 5 MG 1 tablet Orally Once a day Active Lisinopril 10 MG 1 tablet Orally Once a day; Duration: 30 day(s) 09/03/2018 Active Simvastatin 20 MG 1 tablet in the even ing Orally Once a day; Duration: 30 day(s) 09/03/2018 Active Immunizations Vaccine Route Administration Date Status Comme nts Influenza Unknown 02/28/2019 Administered Pneumococcal Unknown 04/30/2017 Administered Social History Tobacco Use: Social History Observation Description Date Details (start date - stop date) Never Smoker NA - NA Tobacco Use/Smoking Question Answer Notes Are you a: nonsmoker Alcohol Screen Question Answer Notes Did you have a drink containing alcohol in the p ast year? No Points 0 Interpretation Negative Plan Of Treatment Pending Test Test Name Order Date [id number] SKIN LESIONS, 2 TO 4 01/02/20 19 [id number] SKIN LESIONS, 2 TO 4 07/02/19 20 Insurance Providers Payer Name Payer Address Payer Phone Subscriber Number Group Number Insured Name Patient Relationship to Insured Coverage Start Date Coverage End Date Medicare National Govt [facility] [address] [place] [address] [id number] Chaitanya Dawson Self - patient is the insured 9 Medical (General) History Medical History History ICD Code [place] scheduled 10/12/[address] Gutierrez Needs eye and foot (would like Dr Tidwell) annual exams, we will arrange. HTN DM2 Hypercholesterolemia Hypertension Broken bones Surgical History Surgery Date(Month/Year) colonoscopy 2018 Dislocated shoulder - no sx 3-4 years ag o
--- OUTSIDE RECORDS SUMMARY | 2025-01-06 09:59 | XMS_ITS | Patient Health Record ---
Author Organization [facility] Address [address] [place] [address] Care Team Providers Care Rigger Apprentice Name Role Phone Mauro Matamoros Primary Care Provider Unavailab Rashad Page Unavailable [phone] Allergies No Known Allergies Reason For Referral No Information Medications Medication SIG (Take, Route, Frequency, Duration) Notes [...] Once a day for 30 day(s) Active Immunizations Vaccine Route Administration Date Status Comme nts Influenza Unknown 02/06/2018 Administered Influenza Unknown 12/29/2018 Administered Social History Tobacco Use: Social History Observation Description Date Details (start date - stop date) Never Smoker NA - NA Tobacco Use/Smoking Question Answer Notes Patient is a nonsmoker Alcohol Screen Question Answer Notes Did you have a drink containing alcohol in the p ast year? No Points 0 Interpretation Negative Section Notes: Nonsmoker; no alcohol Nonsmoker; no alcohol Nonsmoker; no alcohol Problems Problem Type SNOMED Code ICD Code Onset Dates Problem Status W/U Status Risk Notes Problem [id number] Encounter for screening for malignant neoplasm of colon (Z12.11) Active confirmed Problem Diverticular disease of colon (938193313) Diverticulosis of large intestine without perforation or abscess without bleeding (K57.30) Active confirmed Problem [id number] Preprocedural examination (Z01.818) Active confirmed Problem 085723184 Long-term use of aspirin therapy (Z79.82) Active confirmed Problem 623170943 Serrated adenoma of colon (D12.6) Active confirmed Plan Of Treatment Pending Test Test Name Order Date Pathology 07/20/2023 Future Test Test Name Order Date COLONOSCOPY 08/20/2018 COLONOSCOPY 07/15/2019 COLONOSCOPY 03/13/2023 Insurance Providers Payer Name Payer Address Payer Phone Subscriber Number Group Number Insured Name Patient Relationship to Insured Coverage Start Date Coverage End Date MEDICARE OF [place] [address] [place] [id number] PATI REED Self - patient is the insured MEDICAID OF [employer] [address] [place] [phone] [id number] PATI REED Self - patient is the insured Medical (General) History Medical History History ICD Code Denies [place],CVA,Lung disease,renal disease NIDDM Hypertension Hyperlipidemia Screening colonoscopy 06/2018 - >15mm flat serrated adenoma removed from the proximal ascending colon Negative colonosocpy in 09/2019 except fo r a hyperplastic polyp Surgical History Surgery Date(Month/Year)
--- OUTSIDE RECORDS SUMMARY | 2025-01-06 09:59 | XMS_ITS | Clinical Summary ---
Author Organization [employer] Address [address] [place] [address] Care Team Providers Care Hired Help Name Role Phone Unavailable Primary Care Provider [...] Tdap) 10/04/2018 10/03/2018 COVID-19 Vaccine ( season) 2024 03/12/2023, 03/07/2021, 08/04/2020, Additional history exists Influenza Vaccine (#1) 2024 , 02/19/2022, 01/13/2021, Additional history exists RSV [...] patient's age to complete this topic Meningococcal B Vaccine Aged Out No l onger eligible based on patient's age to complete this topic Meningococcal Vaccine Aged Out No kathi eric eligible based on patient's age to complete this topic RSV under 20 months Aged Out No longe r eligible based on patient's age to complete this topic Rotavirus Vaccines Aged Out No longer eligible based on patient's age to complete this topic Insurance [facility] MEDICA[facility] STAND ADULT
[2025-01-06 11:21] LABS: MANUAL DIFF FLAG NO
[2025-01-06 11:33] LABS: Hematocrit 44.0 % (42.0-52.0); Hemoglobin 14.7 g/dl (14.0-18.0); Imm Gran Abs Auto 0.02 X10*3/uL (0.00-0.03); Imm Gran Pct Auto 0.4 % (0.0-0.4); Lymphocytes Absolute Auto 1.2 X10*3/uL (1.2-4.9); Mean Corpuscular HGB Conc 33.4 g/dl (31.0-36.0); Mean Corpuscular Hemoglobin 28.9 pg (27.0-33.0); Mean Corpuscular Volume 86.4 fL (80.0-98.0); NRBC Abs Auto 0.000 X10*3/uL (0.0-0.012); NRBC Pct Auto 0.0 /100WBC (0.0-0.2); Platelet Count 199 X10*3/uL (160-400); Red Blood Count 5.09 X10*6/uL (4.60-5.80); White Blood Count 5.2 X10*3/uL (4.8-10.8)
[2025-01-06 11:36] LABS: Appearance Urine Clear; Glucose Urine UA Negative (Negative); PH 8.0 (5.0-9.0); Specific Gravity - Urine 1.020 (1.005-1.025)
[2025-01-06 12:04] LABS: Microalbum/Creatinine Ratio Ur 9.6 ug/mg cr (<30)
[2025-01-06 12:10] LABS: Alanine Aminotransferase 19 U/L (0-40); Albumin Level 4.3 g/dL (3.5-5.0); Alkaline Phosphatase 75 U/L (39-117); Anion Gap 12 (12-20); Aspartate Amino Transferase 23 U/L (5-37); Blood Urea Nitrogen 23 mg/dL (9-16); Calcium 9.1 mg/dL (8.4-10.2); Carbon Dioxide 30 mmol/L (22-29); Chloride 104 mmol/L (96-108); Cholesterol 149 mg/dL (<200); Estimated Glomerular Filt Rate > 60; HDL Cholesterol 43 mg/dL (>40); Potassium 4.4 mmol/L (3.3-5.1); Sodium 142 mmol/L (135-145); Total Protein 7.1 g/dL (6.5-8.0); Triglycerides 111 mg/dL (<150)
== END 2025-01-06 08:19 | disposition home or self-care (01) ==
LOC: HO.WFDLDS 08:18
PROVIDERS: PCP Family Medicine; Visit Provider Family Medicine
DX: Z00.00 Encounter for general adult medical examination without abnormal findings (principal); I10 Essential (primary) hypertension; E11.9 Type 2 diabetes mellitus without complications; I25.10 Atherosclerotic heart disease of native coronary artery without angina pectoris; Z79.84 Long term (current) use of oral hypoglycemic drugs; Z79.82 Long term (current) use of aspirin; Z79.899 Other long term (current) drug therapy
CPT/HCPCS: 36415; 80053; 80061; 81003; 82043; 82570; 83036; 84443; 85025; 99212

== ENCOUNTER 2025-01-06 08:18 | Outpatient (AMB) | payer MEDICARE, MEDICAID, SELFPAY ==
--- NOTE | 2025-01-06 08:22 | MHC.PC.OV ---
Vital Signs 01/06/25 08:26 Height 5 ft 6 in Weight 197 lb 3 oz BMI 31.8 BP 120/72 Blood Pressure Location Rt brachial Position Sitting Respiration 14 Pulse 83 Pulse Source Pulse Oximeter Temp 97.1 F Temp Source Temporal Artery Scan Pulse Oximetry (%) 95 Oxygen Delivery Method Room Air Intake Visit Reasons: f/u diabetes, HTN Intake Note: Chaitanya presents in the office today for a follow up to his diabetes and hypertension. Allergies No Known Allergies Allergy (Verified 01/06/25 08:24) Medication List - Last Reconciled 01/06/25 by Mauro Matamoros MD albuterol sulfate 90 mcg/actuation 2 puffs inhalation Q4-6H PRN 30 days amlodipine 10 mg (2 x 5 mg) PO DAILY 90 days aspirin (Adult Low Dose Aspirin) 81 mg PO DAILY atorvastatin 20 mg PO BEDTIME 90 days blood sugar diagnostic (FreeStyle Lite Strips) DX: E11.9, test blood sugar twice a day, 90 days blood-glucose meter (FreeStyle Gary Lite kit) test blood sugar twice a day As directed glipizide ER 10 mg PO DAILY 90 days lancets (FreeStyle Lancets) Test blood sugar twice a day lisinopril-hydrochlorothiazide 20-25 mg 1 tab PO DAILY metformin 500 mg PO BID 90 days Tobacco use date assessed: 01/06/25 Fall risk assessment: No Falls in past year Last assessed Fall Risk: 01/06/25 Dental Screening Dental Screen Date: 01/06/25 Did you have a dental visit in the last 12 months?: Yes Did you have a dental problem in the last 6 months where you did not have access to dental care?: No Was dental information given to patient?: Patient has dentist HPI f/u diabetes, HTN HPI Details 74 y/o male presents to f/u diabetes, HTN. Blood pressure today 120/72, 83p. He is on lisinopril-HCTZ 20-25mg daily, amlodipine 10mg daily. He is on glipizide 10mg daily, metformin 500mg b.i.d. Recent A1c 7.1%. HPI Comments History of Present Illness Details Documentation assistance for Mauro Matamoros MD, was provided by Jose Livingston, Cigar Head Stringer on at 8:40 AM EST. I, Dr. Matamoros, have read, observed, and verified documentation. [facility] Medical History (Updated 01/06/25 @ 08:38 by Jose Livingston) Adult general medical exam Screening for prostate cancer Screening for colon cancer Vertigo Elevated cholesterol CAD (coronary artery disease) HTN (hypertension) Diabetes Cerumen debris on tympanic membrane Immunization counseling Wheezing Dizziness Surgical History H/O colonoscopy Social History (Updated 01/06/25 @ 08:26 by Candis Drew MA) Household Members: Family Household Members Other:: sister Housing: House 75 years or older and lives alone: No Alcohol intake: never Patient Tobacco Use Status: Never used Tobacco e-Cigarette/Vaping Use: Never Used Second Hand Smoke Exposure: No Use of substances other than those prescribed or required for medical reasons: No service: No Current occupational status: retired Current occupational exposures/hazards: No Cognitive needs: No Hearing needs: No Vision needs: No Questionnaire Thrive Questionnaire Date Thrive assessed: 09/25/24 I am a: Patient What is your living situation today?: I have a steady place to live Within the past 12 months, did the food you bought not last and you didn't have the money to get more?: Never true Within the past 12 months, did you worry whether your food would run out before you got money to buy more?: Never true Do you have trouble paying for medicines?: No Do you have trouble getting transportation to medical appointments?: No Do you have trouble paying your heating and electricity bill?: No Do you have trouble taking care of your child, family member or friend?: No Do you have trouble with day-to-day activities such as bathing, preparing meals, shopping, managing finances, etc.?: No Are you currently unemployed and looking for a job?: No Are you interested in more education?: No Please select the resources that you would like help with: None Currently or been in a relationship where the following occur: No concerns reported THRIVE Score: 0 SAMANTHA-7 AMB Questionnaire SAMANTHA-7 Date SAMANTHA - 7 assessed: 09/25/24 Source: Developed by Drs. Rashad Dominique, Dorota Padilla, Fabian Dunham and colleagues, with an educational joslyn from [employer]. Review of Systems Const Denies chills, Denies fatigue, Denies fever(s), Denies headache(s) and Denies weakness ENT Denies dizziness and Denies headache(s) Card Denies dyspnea Resp Denies cough, Denies dyspnea, Denies wheezing and Denies other (shortness of breath) Musc Denies numbness and Denies tingling Neuro Denies dizziness, Denies headache(s), Denies numbness, Denies tingling and Denies weakness Psych Denies anxiety and Denies depression Endo Denies fatigue Aller/Immun Denies wheezing Physical exam (Primary Care) Vital Signs: Last Vital Signs Temp 97.1 F 01/06/25 08:26 Pulse 83 01/06/25 08:26 Resp 14 01/06/25 08:26 BP 120/72 01/06/25 08:26 Pulse Ox 95 01/06/25 08:26 Oxygen Delivery Method Room Air 01/06/25 08:26 BMI result Body Mass Index 31.8 Tobacco/Smoking Status: Tobacco use Status Tobacco use date assessed 01/06/25 01/06/25 08:30 Patient Tobacco Use Status Never used Tobacco 01/06/25 08:26 e-Cigarette/Vaping Use Never Used 01/06/25 08:26 Thrive Assessment: Date of Thrive Assessment Date Thrive assessed 09/25/24 01/06/25 08:24 Currently or been in a relationship where the following occur: No concerns reported Const General: well developed; No acute distress Nutritional Appearance: well nourished Orientation/consciousness: patient oriented x3 HENMT Head: Yes normocephalic and Yes atraumatic Eyes General: appearance normal, both eyes and all related structures Pupils: Equal, round and reactive pupils present EOM: EOMs intact bilaterally Resp Effort & Inspection: normal respiratory effort Auscultation: clear to auscultation bilaterally Cardio Rate: regular rate Rhythm: regular rhythm Heart sounds: S1 normal heart sound present, S2 normal heart sound present, no gallops, no murmurs and no rubs Neuro General: patient oriented x3 and gait normal Cranial nerves: Yes Equal, round and reactive pupils present Psych Affect: normal affect Results AMB Hemoglobin A1c AMB Hemoglobin A1c 7.1 % Last Edit by Candis Drew MA on 01/06/25 08:44 Coding Level of Care Code Est Pt Level 4 (81932) Diagnoses Diabetes type 2, controlled E11.9 Essential hypertension I10 CAD (coronary artery disease) I25.10 Assessment & Plan Assessment & Plan (1) Diabetes type 2, controlled: Code(s): E11.9 - Type 2 diabetes mellitus without complications Category: Medical Plan: A1c still above goal of less than 7% Increased metformin from 500 mg b.i.d. to 500 mg a.m. and 750 mg p.m. He continue glipizide as prescribed (2) Essential hypertension: Code(s): I10 - Essential (primary) hypertension Category: Medical Plan: Blood pressure is controlled. Is less than 130/80 Continue current medication regimen (3) CAD (coronary artery disease): Comment: follows w/PCP Code(s): I25.10 - Atherosclerotic heart disease of [place] coronary artery without angina pectoris Category: Medical Plan: Stable Orders: Orders Comprehensive [place]. Panel Fast Today Z00.00 - Encounter for general adult medical examination without abnormal findings Complete Blood Count Auto Diff Today Z00.00 - Encounter for general adult medical examination without abnormal findings Microalbumin, Random (w Creat) Today I10 - Essential (primary) hypertension Lipid Panel Today Z00.00 - Encounter for general adult medical examination without abnormal findings UA CC w/rflx Micro + Cult Today Z00.00 - Encounter for general adult medical examination without abnormal findings AMB Hemoglobin A1c Today E11.9 - Type 2 diabetes mellitus without complications TSH reflex Free T4 Today Z00.00 - Encounter for general adult medical examination without abnormal findings Medications: Changed From metformin 500 mg PO BID 90 days 180 caps 3RF To metformin 1 tab (500mg) AM and 1.5 tabs (750mg) PM orally 2 times a day; 225 caps 3RF 90 days
[2025-01-06 08:26] VITALS: BP 120/72; PULSE 83; RESP 14; TEMP 36.2; O2SAT 95; BMI 31.8
== END 2025-01-06 08:46 | disposition home or self-care (01) ==
LOC: HO.HMCFM 08:19
PROVIDERS: PCP Family Medicine; Visit Provider Family Medicine
DX: E11.9 Type 2 diabetes mellitus without complications (principal); I10 Essential (primary) hypertension; I25.10 Atherosclerotic heart disease of native coronary artery without angina pectoris

== ENCOUNTER 2025-04-13 11:48 | Outpatient (AMB) | payer MEDICARE, MEDICAID, SELFPAY ==
--- NOTE | 2025-04-13 11:51 | A.OFFPC_ITS ---
Vital Signs 04/13/25 11:53 Height 5 ft 6 in Weight 203 lb 2 oz BMI 32.8 BP 122/70 Blood Pressure Location Rt brachial Position Sitting Pulse 80 Pulse Source Pulse Oximeter Pulse Oximetry (%) 98 Oxygen Delivery Method Room Air Intake Visit Reasons: extended exam (medicare pt) Allergies No Known Allergies Allergy (Verified 04/13/25 11:54) Medication List - Last Reconciled 04/13/25 by Mauro Matamoros MD albuterol sulfate 90 mcg/actuation 2 puffs inhalation Q4-6H PRN 30 days amlodipine 10 mg (2 x 5 mg) PO DAILY 90 days aspirin (Adult Low Dose Aspirin) 81 mg PO DAILY atorvastatin 20 mg PO BEDTIME 90 days blood sugar diagnostic (FreeStyle Lite Strips) DX: E11.9, test blood sugar twice a day, 90 days blood-glucose meter (FreeStyle [place] Lite kit) test blood sugar twice a day As directed glipizide ER 10 mg PO DAILY 90 days lancets (FreeStyle Lancets) Test blood sugar twice a day lisinopril-hydrochlorothiazide 20-25 mg 1 tab PO DAILY metformin 1 tab (500mg) AM and 1.5 tabs (750mg) PM orally 2 times a day; 90 days Tobacco use date assessed: 04/13/25 Fall risk assessment: No Falls in past year Last assessed Fall Risk: 04/13/25 Dental Screening Dental Screen Date: 04/13/25 Did you have a dental visit in the last 12 months?: Yes Did you have a dental problem in the last 6 months where you did not have access to dental care?: No Was dental information given to patient?: Patient has dentist HPI extended exam (medicare pt) HPI Details 75 y/o male presents for an extended exa m with f/u [employer], health maint. Labs drawn 01/06/25. Reviewed labs with pt. A1c 7.1%. Triglycerides 111. TC 149. LDL 84. HDL 43. TSH 1.18 uIU/mL. Blood pressure today 122/70, 80p. He is on lisinopril-HCTZ 20-25mg daily, amlodipine 10mg daily. A1c today 6.8%. He is on metformin, glipizide 10mg daily. Sees Dr. Gutierrez for colonoscopies. He notes he last visited them about 2 years ago. HPI Comments History of Present Illness Details Documentation assistance for Mauro Matamoros MD, was provided by Jose Livingston,? Court Transcriber on 04/13/2025 at 12:34 PM EST. I, Dr. Matamoros, have read, observed, and verified documentation. ?? PFSH Medical History Adult general medical exam Screening for prostate cancer Screening for colon cancer Vertigo Elevated cholesterol CAD (coronary artery disease) HTN (hypertension) Diabetes Cerumen debris on tympanic membrane Immunization counseling Wheezing Dizziness Surgical History H/O colonoscopy Social History Household Members: Family Household Members Other:: sister Housing: House 75 years or older and lives alone: No Alcohol intake: never Patient Tobacco Use Status: Never used Tobacco e-Cigarette/Vaping Use: Never Used Second Hand Smoke Exposure: No service: No Current occupational status: retired Current occupational exposures/hazards: No Cognitive needs: No Hearing needs: No Vision needs: No Questionnaire PHQ-9 Over the last 2 weeks, how often have you been bothered by any of the following problems? 1. Little interest or pleasure in doing things: not at all 2. Feeling down, depressed, or hopeless: not at all 3. Trouble falling or staying asleep, or sleeping too much: not at all 4. Feeling tired or having little energy: not at all 5. Poor appetite or overeating: not at all 6. Feeling bad about yourself - or that you are a failure or have let yourself or your family down: not at all 7. Trouble concentrating on things, such as reading the newspaper or watching television: not at all 8. Moving or speaking so slowly that other people could have noticed. Or the opposite - being so fidgety or restless that you have been moving around a lot more than usual: not at all 9. Thoughts that you would be better off or of hurting yourself in some way: not at all Total score: 0 Depression Screening Interpretation: Negative Depression Screening Done: Yes Source: Developed by Drs. Rashad Dominique, Dorota Padilla, Fabian Dunham and colleagues, with an educational joslyn from e([employer]. Thrive Questionnaire Date Thrive assessed: 09/25/24 I am a: Patient What is your living situation today?: I have a steady place to live Within the past 12 months, did the food you bought not last and you didn't have the money to get more?: Never true Within the past 12 months, did you worry whether your food would run out before you got money to buy more?: Never true Do you have trouble paying for medicines?: No Do you have trouble getting transportation to medical appointments?: No Do you have trouble paying your heating and electricity bill?: No Do you have trouble taking care of your child, family member or friend?: No Do you have trouble with day-to-day activities such as bathing, preparing meals, shopping, managing finances, etc.?: No Are you currently unemployed and looking for a job?: No Are you interested in more education?: No Please select the resources that you would like help with: None Currently or been in a relationship where the following occur: No concerns reported THRIVE Score: 0 AUDIT C Alcohol Use Questionnaire (AUDIT-C) 1. How often do you have a drink containing alcohol?: Never 3. How often do you have six or more drinks on one occasion?: Never Total Score: 0 SAMANTHA-7 AMB Questionnaire SAMANTHA-7 Date SAMANTHA - 7 assessed: 09/25/24 Feeling nervous, anxious, or on edge: 0 = Not at all Not being able to stop or control worryin = Not at all Worrying too much about different things: 0 = Not at all Trouble relaxin = Not at all Being so restless that it is hard to sit still: 0 = Not at all Becoming easily annoyed or irritable: 0 = Not at all Feeling afraid as if something awful might happen: 0 = Not at all Total SAMANTHA-7 score (0-4 normal; 5-9 mild; 10-14 moderate; 15-21 severe): 0 Source: Developed by Drs. Rashad Dominique, Fabian Zabala and colleagues, with an educational joslyn from [employer]. Review of Systems Const Denies chills, Denies fatigue, Denies fever(s), Denies headache(s) and Denies weakness Eyes Denies change in vision ENT Denies dizziness, Denies headache(s), Denies hearing loss, Denies nasal congestion, Denies sinus pain, Denies sinus pressure and Denies sore throat Card Denies chest pain, Denies lightheadedness, Denies dyspnea and Denies other (palpitations) Resp Denies cough, Denies dyspnea and Denies wheezing GI Denies abdominal pain, Denies melena, Denies hematochezia, Denies change in bowel habits, Denies dyspepsia and Denies nausea Denies hematuria and Denies dysuria Musc Denies abnormal gait, Denies myalgias, Denies arthralgias, Denies numbness and Denies tingling Skin/Breast Denies rash, Denies unusual bruising and Denies wounds Neuro Denies abnormal gait, Denies dizziness, Denies headache(s), Denies memory loss, Denies numbness, Denies Sensory deficit (Neuro), Denies tingling and Denies weakness Psych Denies anxiety, Denies depression and Denies memory loss Endo Denies cold intolerance, Denies fatigue, Denies heat intolerance, Denies polydipsia and Denies polyuria Yakov/Lymph Denies easy bleeding and Denies easy bruising Aller/Immun Denies wheezing Physical exam (Primary Care) Vital Signs: Last Vital Signs Pulse 80 04/13/25 11:53 BP 122/70 04/13/25 11:53 Pulse Ox 98 04/13/25 11:53 Oxygen Delivery Method Room Air 04/13/25 11:53 BMI result Body Mass Index 32.8 Tobacco/Smoking Status: Tobacco use Status Tobacco use date assessed 04/13/25 04/13/25 11:57 Patient Tobacco Use Status Never used Tobacco 04/13/25 11:52 e-Cigarette/Vaping Use Never Used 04/13/25 11:52 PHQ-9: PHQ-9 Score PHQ-9: Total score 0 04/13/25 12:33 Depression Screening Interpretation: Negative Thrive Assessment: Date of Thrive Assessment Date Thrive assessed 09/25/24 04/13/25 11:52 Currently or been in a relationship where the following occur: No concerns re ported Const General: no acute distress, well developed, alert and awake Nutritional Appearance: well nourished Orientation/consciousness: patient oriented x3 HENMT Head: Yes normocephalic and Yes atraumatic Ears: hearing grossly normal bilaterally and TM's normal bilaterally General nose exam: Normal external nose present and Normal nares present Mouth: Normal oral and palatal mucosa present and moist mucous membranes Teeth and gingiva: dentition normal Throat: Yes posterior oropharynx normal Eyes General: appearance normal, both eyes and all related structures Pupils: Equal, round and reactive pupils present and Pupil accommodation reflex normal EOM: EOMs intact bilaterally Neck Neck: Yes normal visual inspection, Yes no lymphadenopathy and Yes trachea midline Thyroid: Thyroid normal Carotids: no bruits Lymphatic: no lymphadenopathy noted Chest Chest palpation & inspection: normal inspection of the chest Resp Effort & Inspection: normal respiratory effort Auscultation: clear to auscultation bilaterally Cardio Rate: regular rate Rhythm: regular rhythm Heart sounds: S1 normal heart sound present, S2 normal heart sound present, no gallops, no murmurs and no rubs Bruits: no abdominal aortic bruits and no carotid bruits GI Palpation (GI): No Abdominal aortic bruit present, Soft to palpation, nontender, No hepatosplenomegaly present and No Rebound tenderness present Auscultation: normal bowel sounds General: Yes no CVA tenderness Back/Spine/Pelvis Back: no CVA tenderness Cervical Spine: cervical ROM normal and No Cervical spine tenderness Thoracic/Lumbar Spine: thoraco-lumbar ROM normal, No pain with thoraco-lumbar ROM, No thoracic spinal tenderness and No lumbar spinal tenderness Skin Lesions: no lesions Rashes: no rashes Trauma: no lacerations or abrasions Wounds: no wounds Nails: normal Neuro General: patient oriented x3 Cranial nerves: Yes Equal, round and reactive pupils present Cognition (Neuro): normal cognition Gait exam (Neuro): Normal gait present Motor exam (neuro): 5/5 motor strength present throughout Sensory Exam: No Sensory deficit (Neuro) Deep tendon reflexes (DTR's): Right patellar reflex intensity grade: 2+ and Left patellar reflex intensity grade: 2+ Extrem General: Yes normal to inspection and No edema Psych Appearance: grossly normal Affect: normal affect Attitude: cooperative Thought process: Normal thought process present Results AMB Hemoglobin A1c AMB Hemoglobin A1c 6.8 % Last Edit by Nazia Mon CMA on 04/13/25 12:04 Results Reviewed Results Reviewed: Laboratory Last Values Hgb A1c (Clinic) 6.8 % (4.0-6.0) H 04/13/25 11:59 Coding Level of Care Code Est Pt Level 4 (79012) Diagnoses Essential hypertension I10 CAD (coronary artery disease) I25.10 Hypercholesterolemia E78.00 Diabetes type 2, controlled E11.9 Screening for colon cancer Z12.11 Neoplasm of uncertain behavior of skin D48.5 Screening for prostate cancer Z12.5 Adult general medical exam Z00.00 Assessment & Plan Assessment & Plan (1) Essential hypertension: Code(s): I10 - Essential (primary) hypertension Category: Medical Plan: Blood pressure is controlled. Goal is less than 130/80 Continue current medications (2) CAD (coronary artery disease): Comment: follows w/PCP Code(s): I25.10 - Atherosclerotic heart disease of [place] coronary artery without angina pectoris Category: Medical Plan: Stable Continue atorvastatin and aspirin Control blood pressure and blood sugar (3) Hypercholesterolemia: Code(s): E78.00 - Pure hypercholesterolemia, unspecified Category: Medical Plan: Cholesterol levels are controlled. Continue atorvastatin (4) Diabetes type 2, controlled: Code(s): E11.9 - Type 2 diabetes mellitus without complications Category: Medical Plan: A1c was above goal at last visit Increased metformin A1c now 6.8%. Good control. Goal is less than 7% Continue current medication (5) Screening for colon cancer: Code(s): Z12.11 - Encounter for screening for malignant neoplasm of colon Category: Medical Plan: Followed by Dr. Gutierrez and last colonoscopy in 2022 Up-to-date Follow-up with Dr. Gutierrez as recommended (6) Neoplasm of uncertain behavior of skin: Code(s): D48.5 - Neoplasm of uncertain behavior of skin Category: Medical Plan: Had referred patient to Dermatology for lesion on right ear and also tip of nose. Patient says he canceled this Encouraged him to reschedule (7) Screening for prostate cancer: Code(s): Z12.5 - Encounter for screening for malignant neoplasm of prostate Category: Medical Plan: Due for PSA screening Ordered (8) Adult general medical exam: Code(s): Z00.00 - Encounter for general adult medical examination without abnormal findings Category: Medical Plan: 75-year-old male presents for extended exam. Encouraged healthy diet with active lifestyle and plenty of exercise. Encouraged some weight loss Orders: Orders AMB Hemoglobin A1c Today Z13.9 - Encounter for screening, unspecified Prostate Specific Antigen Scr Today Z12.5 - Encounter for screening for malignant neoplasm of prostate
[2025-04-13 11:53] VITALS: BP 122/70; PULSE 80; O2SAT 98; BMI 32.8
== END 2025-04-13 12:47 | disposition home or self-care (01) ==
LOC: HO.HMCFM 11:49
PROVIDERS: PCP Family Medicine; Visit Provider Family Medicine
DX: I10 Essential (primary) hypertension (principal); I25.10 Atherosclerotic heart disease of native coronary artery without angina pectoris; E78.00 Pure hypercholesterolemia, unspecified; E11.9 Type 2 diabetes mellitus without complications; Z12.11 Encounter for screening for malignant neoplasm of colon; D48.5 Neoplasm of uncertain behavior of skin; Z12.5 Encounter for screening for malignant neoplasm of prostate; Z00.00 Encounter for general adult medical examination without abnormal findings; Z13.9 Encounter for screening, unspecified

== ENCOUNTER → 2025-04-13 11:48 | Outpatient (BNVA) | payer MEDICARE, MEDICAID, SELFPAY | PROVIDERS: PCP Family Medicine; Visit Provider Family Medicine | DX: I10 Essential (primary) hypertension (principal); E78.00 Pure hypercholesterolemia, unspecified; I25.10 Atherosclerotic heart disease of native coronary artery without angina pectoris; E11.9 Type 2 diabetes mellitus without complications; D48.5 Neoplasm of uncertain behavior of skin; Z13.31 Encounter for screening for depression | CPT/HCPCS: 83036; 96127; 99212 ==

== ENCOUNTER 2025-04-24 09:04 | Outpatient (AMB) | payer MEDICARE, MEDICAID, SELFPAY ==
--- OUTSIDE RECORDS SUMMARY | 2025-04-24 09:07 | XMS_ITS | Patient Health Record ---
[facility] Address [address] [place] [address] Care Team Providers Care Cat Sitter Name Role Phone Jennifer Mcknight Primary Care Provider Sim Hester Unavailable [phone] Allergies Allergen (clinical drug ingredient) Drug/Non Drug [...] Treatment Pending Test Test Name Order Date [id number] SKIN LESIONS, 2 TO 4 01/02/20 19 [id number] SKIN LESIONS, 2 TO 4 07/02/19 20 Insurance Providers Payer Name Payer Address Payer Phone Subscriber Number Group Number Insured Name Patient Relationship to Insured Coverage Start Date Coverage End Date Medicare [employer] [address] [place] [address] [id number] Chaitanya Dawson Self - patient is the insured 9 Medical (General) History Medical History History ICD Code [place] scheduled 10/12/[address] Gutierrez Needs eye and foot (would like Dr Tidwell) annual exams, we will arrange. HTN DM2 Hypercholesterolemia Hypertension Broken bones Surgical History Surgery Date(Month/Year) colonoscopy 2018 Dislocated shoulder - no sx 3-4 years ag o
--- OUTSIDE RECORDS SUMMARY | 2025-04-24 09:08 | XMS_ITS | Patient Health Record ---
Author Organization [facility] Address [address] [place] [id number] Care Team Providers Care Bulk Loader Name Role Phone Mauro Matamoros Primary Care Provider Unavailab Rashad Page Unavailable [phone] Allergies No Known Allergies Reason For Referral No Information Medications Medication SIG (Take, Route, Frequency, Duration) Notes Start Date End Date Status metFORMIN HCl 500 MG Tablet 1 tablet wit h a meal Orally Once a day; Duration: 30 day(s) Active glipiZIDE ER 5 MG Tablet Extended Release 24 Hour 1 tablet with food Orally Once a day; Duration: 30 day(s) Active Simvastatin 20 MG Tablet 1 tablet in the evening Orally Once a day; Duration: 30 day(s) Active Promethazine-Codeine 6.25-10 MG/5ML Syrup 5 ml as needed Orally every 6 hrs Active Aspir-81 81 MG Tablet Delayed Release 1 tablet Orally Once a day Active amLODIPine Besylate 5 MG Tablet Oral; Duration: 90 Active Lisinopril 20 MG Tablet 1 tablet Orally Once a day; Duration: 30 day(s) Active Immunizations Vaccine Route Administration Date Status Comme nts Influenza Unknown 02/06/2018 Administered Influenza Unknown 12/29/2018 Administered Social History Tobacco Use: Social History Observation Description Date Details (start date - stop date) Never Smoker NA - NA Social History Drugs/Alcohol: Social Info Question Answer Notes Alcohol Screen Did you have a drink containing alcohol in the past year? 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,and raises cows for beef Section Notes: Nonsmoker; no alcohol Nonsmoker; no alcohol Nonsmoker; no alcohol Problems Problem Type SNOMED Code ICD Code Onset Dates Problem Status W/U Status Risk Notes Problem Screening for malignant neoplasm of colon (296539204) Encounter for screening for malignant neoplasm of colon (Z12.11) Active confirmed Problem Diverticular disease of colon (742055934) Diverticulosis of large intestine without perforation or abscess without bleeding (K57.30) Active confirmed Problem Preprocedural examination (512750940517633) Preprocedural examination (Z01.818) Active confirmed Problem Long-term current use of antiplatelet drug (179342441868365) Long-term use of aspirin therapy (Z79.82) Active confirmed Problem Benign neoplasm of colon (44865543) Serrated adenoma of colon (D12.6) Active confirmed Plan Of Treatment Pending Test Test Name Order Date Pathology 07/20/2023 Future Test Test Name Order Date COLONOSCOPY 08/20/2018 COLONOSCOPY 07/15/2019 COLONOSCOPY 03/13/2023 Insurance Providers Payer Name Payer Address Payer Phone Subscriber Number Group Number Insured Name Patient Relationship to Insured Coverage Start Date Coverage End Date MEDICARE OF [place] [address] [place] [address] [id number] PATI REED Self - patient is the insured MEDICAID OF [facility] [address] [place] [address] [phone] [id number] PATI REED Self - patient is the insured Medical (General) History Medical History History ICD Code Denies [place],CVA,Lung disease,renal disease NIDDM Hypertension Hyperlipidemia Screening colonoscopy 06/2018 - >15mm flat serrated adenoma removed from the proximal ascending colon Negative colonosocpy in 09/2019 except fo r a hyperplastic polyp Surgical History Surgery Date(Month/Year)
--- OUTSIDE RECORDS SUMMARY | 2025-04-24 09:08 | XMS_ITS | Clinical Summary ---
Author Organization [email or web address] Address [address] [place] [address] Care Team Providers Care Plastering Supervisor Name Role Phone Unavailable Primary Care Provider [...] patient's age to complete this topic Insurance [facility] MEDICAID STAND ADULT
--- NOTE | 2025-04-24 09:15 | AM.OFFWIN_ITS ---
Intake Vital Signs 04/24/25 09:16 Height 5 ft 6 in Weight 197 lb BMI 31.8 BP 140/66 H Blood Pressure Location Lt brachial Position Sitting Pulse 92 Pulse Source Pulse Oximeter Temp 97.4 F Temp Source Oral Pulse Oximetry (%) 96 Oxygen Delivery Method Room Air Intake Visit Reasons: EP-cough, fever, sinus issue Intake Note: Patient presents c/o sinus congestion, cough, fever x1 week. Patient Tobacco Use Status: Never used Tobacco Allergies No Known Allergies Allergy (Verified 04/24/25 09:18) HPI HPI Comments History of Present Illness Details History - The patient is a 75 year old male pres enting with a cough that has persisted for 8 days, primarily occurring at night. - His illness began with a fever of 104 about 8 days ago. - He was taking benzonatate 100 mg, whic h was initially effective for one day but no longer provides relief. - The cough is most prominent when he li es down at night and he reportedly does not cough much during the day. - He denies shortness of breath, trouble breathing, wheezing, sinus pain, ear pain, nausea, vomiting, or diarrhea, and is able to eat and drink normally. - His past medical history is negative f or COPD, asthma, or smoking. - He reports seasonal allergies in the [facility] and has never been diagnosed with acid reflux. - He is here with his neighbor, who take s care of him when he is sick, she has tried giving him guafenicin Review of Systems - Constitutional: Reports a fever of 104 approximately eight days prior. - Respiratory: Reports a persistent noct urnal cough. Denies shortness of breath, dyspnea, or wheezing. - HEENT: Denies sinus pain, ear pain, or sore throat. - Gastrointestinal: Denies nausea, vomit ing, or diarrhea. Reports normal appetite and intake. Denies any history of acid reflux. All systems reviewed and are unremarkable except as noted in HPI Physical Exam General: Cooperative, healthy appearing, comfortable and no acute distress Orientation/consciousness: Patient oriented x3 Limitations: No limitations Head: Normal to inspection Ears: Hearing grossly normal bilaterally, external ears normal, EAC's normal bilaterally and TM's normal bilaterally Nose: Normal external nose present, Normal nares present and No nasal discharge present Face and sinus: Normal facial exam and sinuses nontender Mouth: Normal oral and palatal mucosa present and moist mucous membranes Throat: Tonsils normal, no exudates, uvula midline, posterior oropharynx erythema Eyes: Appearance normal, both eyes and all related structures Neck: Normal visual inspection, full ROM Respiratory: Clear to auscultation bilaterally. Normal respiratory effort, able to speak in complete sentences, not actively coughing, no respiratory distress, not tachypneic, no tripod positioning and no use of accessory muscles Cardiovascular: Regular rate and rhythm. Normal S1 and S2 Skin: No rashes or lesions noted Neuro: Patient oriented x3 Extremities: Normal to inspection and Yes no clubbing, cyanosis or edema PFSH Medical History Adult general medical exam Screening for prostate cancer Screening for colon cancer Vertigo Elevated cholesterol CAD (coronary artery disease) HTN (hypertension) Diabetes Cerumen debris on tympanic membrane Immunization counseling Wheezing Dizziness Surgical History H/O colonoscopy Social History Household Members: Family Household Members Other:: sister Housing: House 75 years or older and lives alone: No Alcohol intake: never Patient Tobacco Use Status: Never used Tobacco e-Cigarette/Vaping Use: Never Used Second Hand Smoke Exposure: No service: No Current occupational status: retired Current occupational exposures/hazards: No Cognitive needs: No Hearing needs: No Vision needs: No Physical Exam Vital Signs: Last Vital Signs Temp 97.4 F 04/24/25 09:16 Pulse 92 04/24/25 09:16 BP 140/66 H 04/24/25 09:16 Pulse Ox 96 04/24/25 09:16 Oxygen Delivery Method Room Air 04/24/25 09:16 BMI result Body Mass Index 31.8 Assessment & Plan Assessment & Plan (1) URI, acute: Code(s): J06.9 - Acute upper respiratory infection, unspecified Plan: Patient was informed and verbally consented to the use of an ambient scribe for clinic note documentation during this visit. - VSS, pt well appearing and PE unremarkable. - The patient's nocturnal cough has persisted for eight days following an illness with high fever, and his current 100 mg benzonatate dosage is ineffective. - Physical exam shows clear lungs and normal oxygenation and lungs are CTA. - Gastroesophageal reflux disease (GERD) was considered as a differential, with a recommendation to try omeprazole if the cough persists. - Flu, Covid and RSV testing has been sent. Outside the window for an antivirals. - Plan A is to increase the antitussive dosage; a new prescription for benzonatate 200 mg capsules will be sent to be taken at bedtime. - The patient has been instructed to try this higher dose first. - Plan B, a backup plan due to the upcoming weekend, involves a prescription for codeine-guaifenesin syrup, which will be sent to the pharmacy but should only be filled and used if the benzonatate 200 mg is not effective. - The patient was counseled on when to seek emergency care. Orders: Orders SARS-CoV2/FLU/RSV Today Marcelle Ram MD R09.89 - Other specified symptoms and signs involving the circulatory and respiratory systems Medications: New benzonatate DO NOT ALLOW CHILDREN TO HAVE ACCESS TO THIS MEDICATION IT IS DANGEROUS FOR CHILDREN. 200 mg PO BEDTIME PRN 10 caps 0RF cough Audra Doyle PA-C codeine-guaifenesin 10-100 mg/5 mL 10 mL PO Q4-6H PRN 120 mL 0RF cold symptoms Audra Doyle PA-C Coding Level of Care Code Est Pt Level 3 (92915) Diagnoses URI, acute J06.9
[2025-04-24 09:16] VITALS: BP 140/66; PULSE 92; TEMP 36.3; O2SAT 96; BMI 31.8
== END 2025-04-24 09:52 | disposition home or self-care (01) ==
PROVIDERS: PCP Family Medicine; Visit Provider Physician Assistant
DX: J06.9 Acute upper respiratory infection, unspecified (principal)

== ENCOUNTER 2025-04-24 09:04 | Outpatient (REF) | payer MEDICARE, MEDICAID, SELFPAY ==
--- OUTSIDE RECORDS SUMMARY | 2025-04-24 09:29 | XMS_ITS ---
Author Organization Unknown ENCOUNTERS Encounter Performer Location Date Diagnosis Diagnosis Status Pre Admit [id number] [place] [id number] Outpatient [facility] [address] [place] [address] [id number] [facility] [address] [id number] [id number] [facility] Pre Admit [facility] [address] [place] [address] [id number] [facility] [address] [place] [address] [phone] [facility] *Note: Encounters from your own facility or health system may be excluded. Allergies, Adverse Reactions, Alerts Allergen Type Severity Identification Date Medications Name Date Quantity Days Supplied GPI Number
[2025-04-24 11:04] LABS: Resp Syncy Virus RNA Qual PCR NEGATIVE (Negative); SARS COV2 PCR INHOUSE POSITIVE (Negative)
== END 2025-04-24 09:05 | disposition home or self-care (01) ==
LOC: HO.LNP 09:04
PROVIDERS: Family Medicine; PCP Family Medicine
DX: J06.9 Acute upper respiratory infection, unspecified (principal); R09.89 Other specified symptoms and signs involving the circulatory and respiratory systems
CPT/HCPCS: 87637; 99212